=== PATIENT | male | born 1940 | race Caucasian/White ===

== ENCOUNTER 2019-04-12 22:03 | Inpatient (IN) | payer MEDICARE, BC ==
[2019-04-12] MEDS ORDERED: ZOCOR20 MG PO (22:15)
[2019-04-12] MEDS ORDERED: FLOMAX0.4 MG PO (22:15)
[2019-04-12 22:51] LABS: APTT 29.5 SECONDS (22.8-39.4); INR 0.99 (0.85-1.17); PROTIME 12.6 SECONDS (11.6-15.0)
[2019-04-12 22:55] LABS: ALBUMIN 3.7 g/dL (3.4-5.0); ALKALINE PHOSPHATASE 88 U/L (46-116); ALT (SGPT) 45 U/L (10-68); BILIRUBIN - TOTAL 0.98 mg/dL (0.2-1.3); CALC OSMOLALITY 286 mosm/kg (275-300); CALCIUM 8.9 mg/dL (8.5-10.1); CARBON DIOXIDE 28.2 mmol/L (21.0-32.0); CHLORIDE - SERUM 106 mmol/L (98-107); CREATININE - SERUM 0.9 mg/dL (0.6-1.3); GLUCOSE 110 mg/dL (74-106); POTASSIUM - SERUM 4.3 mmol/L (3.5-5.1); PROTEIN - SERUM 6.8 g/dL (6.4-8.2); SODIUM 142 mmol/L (136-145); UREA NITROGEN 22 mg/dL (7-18); eGFR NON AFRICAN AMERICAN 86 mL/min (90-120)
[2019-04-12 23:07] LABS: CHOL - HDL RATIO 4.3 ratio (2.3-4.9); CHOLESTEROL, TOTAL 196 mg/dL (0-200); CKMB 1.2 U/L (0.0-3.6); CREATINE KINASE 59 UL (21-232); HDL CHOLESTEROL 46 mg/dL (32-96); LDL CHOLESTEROL 122 mg/dL (0-100); LDL-HDL RATIO 2.7 ratio (1.5-3.5); MAGNESIUM - SERUM 1.9 mg/dL (1.8-2.4); THYROID STIMULATING HORMONE 1.53 uIU/mL (0.36-3.74); TRIGLYCERIDE 142 mg/dL (30-200)
[2019-04-12 23:08] LABS: BASOPHILS 0.2 % (0-2); HEMATOCRIT 46.1 % (42.0-54.0); HEMOGLOBIN 16.4 g/dL (13.5-17.5); IMMATURE GRANULOCYTES 0.6 % (0-5); LYMPHOCYTES 25.8 % (15-50); MCH 31.5 pg (26.0-34.0); MCHC 35.6 g/dL (31.0-37.0); MCV 88.7 fL (80.0-100.0); MEAN PLATELET VOLUME 9.4 fL (7.4-10.4); MONOCYTES 12.4 % (2-11); PLATELET COUNT 161 10x3/uL (130-400); RDW 13.9 % (11.5-14.5)
[2019-04-12 23:13] LABS: TROPONIN-I < 0.017 ng/mL (0.000-0.060)
--- NOTE | 2019-04-12 23:17 | NUR ---
IN AND OUT RUELAS CATHETER INSERTED WITH URINE SENT TO LAB. PT TOLERATED WELL.
[2019-04-13 00:01] LABS: UDS - AMPHET NEGATIVE QUAL (NEGATIVE); UDS - BARB NEGATIVE QUAL (NEGATIVE); UDS - BENZO NEGATIVE QUAL (NEGATIVE); UDS - COCAINE NEGATIVE QUAL (NEGATIVE); UDS - OPIATE NEGATIVE QUAL (NEGATIVE); UDS - PCP NEGATIVE QUAL (NEGATIVE); UDS - THC NEGATIVE QUAL (NEGATIVE)
[2019-04-13 00:04] LABS: APPEARANCE CLEAR (CLEAR); BILIRUBIN NEGATIVE (NEGATIVE); COLOR YELLOW (YELLOW); GLUCOSE NEGATIVE (NEGATIVE); KETONE NEGATIVE (NEGATIVE); NITRITE NEGATIVE (NEGATIVE); PROTEIN NEGATIVE (NEGATIVE); UROBILINOGEN NORMAL (NORMAL)
[2019-04-13 00:10] VITALS: BP 126/72
--- NOTE | 2019-04-13 01:33 | NUR ---
PATIENT ARRIVED FROM OUR E.D. AT 00:45 CALM AND COOPERATIVE, CODE STATUS IS FULL CODE, CODE WORD IS 'ALVIN1', CONSENTS SIGNED BY PATIENT, SALLY MORALES AWARE OF ARRIVAL, VS T 96.1, P 77, R 13, BP 123/72, O 2 97 %, WILL CONTINUE TO MONITOR.
[2019-04-13 02:59] VITALS: BP 123/72; BMI 27.5
[2019-04-13 07:44] LABS: CHOL - HDL RATIO 3.6 ratio (2.3-4.9); LDL-HDL RATIO 2.3 ratio (1.5-3.5)
[2019-04-13 08:39] VITALS: BMI 27.5
[2019-04-13 12:39] VITALS: BP 154/68
[2019-04-13 12:42] VITALS: BMI 27.4
--- NOTE | 2019-04-13 14:28 | NUR ---
B) The patient is pleasant and calm, he has poor short term memory recall and poor insight into his situation. He knows his name, but not place or time. He has not shown any aggression today. I) Provide prescribed meds, encourage group participation. R) The patient is compliant with meds. P) Continue POC.
--- NOTE | 2019-04-14 01:55 | NUR ---
B) Patient is alert and oriented to person, looking for his keys, forgetful asking several times the same question, I) Administered scheduled medications as ordered, redirected as needed, R) Mediation compliant, agitated at times, P) Continue plan of care.
[2019-04-14 07:25] LABS: VITAMIN D 25 HYDROXY 22.7 ng/mL (30.0-100.0)
--- NOTE | 2019-04-14 08:10 | NUR ---
B) The patient is awake and alert. He is oriented to self only, he is confused, he began walking over toward the Rehab door to go to breakfast. I) Provide prescribed meds. R) The patient is compliant meds. P) Continue POC.
[2019-04-14 08:15] LABS: RAPID PLASMA REAGIN Non Reactive (Non Reactive)
[2019-04-14 09:21] VITALS: BP 158/90
[2019-04-14 14:07] LABS: BASOPHILS 0.3 % (0-2); EOSINOPHILS 0.7 % (0-7); HEMATOCRIT 47.5 % (42.0-54.0); HEMOGLOBIN 17.1 g/dL (13.5-17.5); IMMATURE GRANULOCYTES 0.3 % (0-5); LYMPHOCYTES 17.9 % (15-50); MCH 31.6 pg (26.0-34.0); MCV 87.8 fL (80.0-100.0); MEAN PLATELET VOLUME 9.6 fL (7.4-10.4); MONOCYTES 11.4 % (2-11); NEUTROPHILS 69.4 % (40-80); PLATELET COUNT 156 10x3/uL (130-400); RBC 5.41 10x6/uL (4.20-6.10); RDW 13.7 % (11.5-14.5); WBC 5.8 10x3/uL (4.8-10.8)
--- NOTE | 2019-04-14 14:15 | PSY ---
PATIENT NAME:GENA MORALES MEDICAL RECORD: [id number] : 38 LOCATION:[facility] ADMISSION DATE: 04/13/19 ACCOUNT: [id number] PSYCHIATRIC EVALUATION DATE OF EVALUATION: 04/13/19 IDENTIFYING DATA: The patient is 79 years old and he is admitted to the hospital on a voluntary basis. CHIEF COMPLAINT: Aggression. HISTORY OF PRESENT ILLNESS: The patient lives at home with his . He has a history of dementia and he became aggressive with her. The primary care physician ordered Seroquel, which did not help and he was aggressive again, so he was brought to the Emergency Room and admitted. The patient is very polite, cooperative, talks to me in a very casual fashion and says that he has no particular problems. He does not know where he is. He does not realize it is the hospital and seems surprised and then dismissive when I tell him that. He says that he is waiting to be called to court to testify that he is being asked to testify in a murder trial, but he says that there is really no reason for him to go and testify because he does not have any information and did not see anything. He is clearly quite confused when asked very basic background questions about what he did for a living. He cannot even tell me the answer to that. He says he would never become aggressive with his and does take offense when I tell him that is what happened. He denies depressive symptoms as well as thoughts of harming himself or others. He says that he likes to drink, but that he has done so for a long time. I am not sure how accurate that history is. He denies that he ever drank to serious excess. PAST MEDICAL HISTORY: Significant for benign prostatic hypertrophy and hypercholesterolemia. PAST PSYCHIATRIC HISTORY: Significant for an established diagnosis of dementia. FAMILY HISTORY: Significant for hypertension in his father. ALLERGIES: No known drug allergies. CURRENT MEDICATIONS: Include Flomax and Zocor. SOCIAL HISTORY: The patient does not smoke. He says he does not drink and he has never used recreational drugs. He is . He says he has children, but he cannot remember how many. Again, he does not remember what he did for living. He says he is from [place] and he knows he is in [place], but he cannot tell me why he came here. MENTAL STATUS EXAMINATION: The patient is awake, alert and oriented to person only. His mood is flat. His affect is constricted. Thought processes are circumstantial. Memory, concentration, and abstraction abilities are severely impaired and he denies any intent to harm himself or others as well as psychotic symptoms. ASSETS: Supportive family members. LIABILITIES: Limited insight. DIAGNOSTIC IMPRESSION: AXIS I: Senile dementia of the Alzheimer's type with behavioral disturbances. AXIS II: None. AXIS III: Hypercholesterolemia, benign prostatic hypertrophy. AXIS IV: Moderate. AXIS V: Global assessment of functioning is 30. PLAN: At this time, the patient is admitted to the hospital secondary to aggressive behaviors at home with his . The aggressive behaviors are related to a dementing illness. He will be comprehensively evaluated from both a medical, psychological, and social standpoint. His long-term prognosis is guarded. TRANSINT:[id number] Voice Confirmation ID: [id number] DOCUMENT ID: [id number] CRISELDA DIAMOND MD at 1415 CC: [id number] DICTATION DATE: 04/13/19 1545 PROPELLER ENGINEER: 04/13/19 1624 ADM IN [facility] [address] [id number]
[2019-04-14 14:23] LABS: ALKALINE PHOSPHATASE 93 U/L (46-116); ALT (SGPT) 51 U/L (10-68); BILIRUBIN - TOTAL 1.38 mg/dL (0.2-1.3); CHLORIDE - SERUM 105 mmol/L (98-107); GLUCOSE 78 mg/dL (74-106); POTASSIUM - SERUM 3.9 mmol/L (3.5-5.1); PROTEIN - SERUM 7.2 g/dL (6.4-8.2); SODIUM 142 mmol/L (136-145); eGFR NON AFRICAN AMERICAN 76 mL/min (90-120)
[2019-04-14 15:03] LABS: CALC OSMOLALITY 282 mosm/kg (275-300); UREA NITROGEN 16 mg/dL (7-18)
[2019-04-14 20:00] VITALS: BP 160/74
--- NOTE | 2019-04-14 23:09 | NUR ---
PATIENT IS CONFUSED, TRIES TO USE THE PHONE AND LOOK FOR A WAY TO EXIT, COMPLIANT WITH MEDS, DENIES S/I. WILL FOLLOW POC
[2019-04-15 08:08] VITALS: BP 151/74; BP 177/97
[2019-04-15 09:57] VITALS: BP 177/97
--- NOTE | 2019-04-15 10:36 | PN ---
PATIENT:GENA MORALES MEDICAL RECORD: [id number] LOCATION:[facility] ADMISSION DATE: 04/13/19 PROGRESS NOTE DATE OF SERVICE: 04/14/2019 SUBJECTIVE: The patient's case was discussed with staff. He has no new complaint. OBJECTIVE: The patient denies intent to harm himself or others. He is tolerating his medicines well. ASSESSMENT: Senile dementia of the Alzheimer's type with behavioral disturbances. PLAN: Supportive and educational interventions were made. Long-term prognosis is guarded. He is going to be started on Aricept for his cognitive impairment. TRANSINT:[id number] Voice Confirmation ID: [id number] DOCUMENT ID: [id number] CRISELDA DIAMOND MD at 1036 CC: [id number] DICTATION DATE: 04/14/19 1555 CERAMIC TILE SETTER: 04/14/19 2236 ADM IN [place] [id number]
--- NOTE | 2019-04-15 11:17 | NUR ---
B) The patient is awake and alert, he has poor insight into his situation. He ambulates independently. He asks the same question over and over. He has not been aggressive today. I) Provide prescribed meds. R) The patient is compliant with meds. P) Continue POC.
[2019-04-15 20:00] VITALS: BP 172/89
--- NOTE | 2019-04-16 00:16 | NUR ---
PATIENT IS VERY CONFUSED, ALWAYS LOOKING FOR A TELEPHONE, PT. REDIRECTED OVER AND OVER. COMPLIANT WITH MEDS, PLEASANT DEMEANOR. WILL MONITOR
[2019-04-16 07:00] VITALS: BP 178/93
--- NOTE | 2019-04-16 09:40 | PN ---
PATIENT:GENA MORALES MEDICAL RECORD: [id number] LOCATION:[facility] ADMISSION DATE: 04/13/19 PROGRESS NOTE DATE OF SERVICE: 04/15/2019 SUBJECTIVE: The patient's case was discussed with staff. He has no new complaint. OBJECTIVE: The patient is in good behavioral control with limited insight about his condition. He is tolerating his medicines well. ASSESSMENT: Senile dementia of the Alzheimer's type with behavioral disturbances. PLAN: Current medicines have been reviewed, both will be maintained. Long-term prognosis is guarded. TRANSINT:[id number] Voice Confirmation ID: [id number] DOCUMENT ID: [id number] CRISELDA DIAMOND MD at 0940 CC: [id number] DICTATION DATE: 04/15/19 1226 DIRECTOR OUTPATIENT SERVICES: 04/15/19 1710 ADM IN [address] [id number] [place] [address]
--- NOTE | 2019-04-16 14:19 | NUR ---
PT IS ALERT AND ORIENTED TO PERSON. CALM AND COOPERATIVE WITH ASSESSMENT. PT IS CONFUSED, REPEATEDLY ASK STAFF SAME QUESTIONS. PT IS EASILY REDIRECTED PER STAFF. REDIRECTED AND REORIENTED NEEDED. MED COMPLIANT. FALL PRECAUTIONS IN PLACE. WILL CPOC.
[2019-04-16 20:08] VITALS: BP 130/70
--- NOTE | 2019-04-16 21:46 | NUR ---
RECEIVED IN DAYROOM. SITTING IN A CHAIR WITH PEERS AT HIS SIDE. CALM AND COOPERATIVE WITH CARE AND ASSESSMENT. NO SIGNS OF AGGRESSION. REDIRECT AND REORIENT NEEDED. CONTINUES TO SIT QUIETLY IN CHAIR. CONTINUE PLAN OF CARE
[2019-04-17 07:00] VITALS: BP 126/68
--- NOTE | 2019-04-17 11:29 | NUR ---
PT IS ALERT AND ORIENTED. PT IS CALM AND COOPERATIVE WITH ASSESSMENT. MED COMPLIANT. PT'S BEHAVIOR IS CALM. NO AGGRESSION NOTED AT THIS TIME. REDIRECT AND REORIENT NEEDED. FALL PRECAUTIONS IN PLACE. WILL CPOC.
--- NOTE | 2019-04-17 13:26 | NUR ---
Nutrition follow up Regular diet with 87% average po intake Weight 166lb RD following
--- NOTE | 2019-04-17 14:35 | PN ---
PATIENT:GENA MORALES MEDICAL RECORD: [id number] LOCATION:[facility] ADMISSION DATE: 04/13/19 PROGRESS NOTE DATE OF SERVICE: 04/16/2019 SUBJECTIVE: The patient's case was discussed with staff. He has no new complaint. OBJECTIVE: The patient is polite and in good control. He is making reasonable, coherent, and logical sense, even though he is severely impaired with his memory. ASSESSMENT: Senile dementia of the Alzheimer's type with behavioral disturbances. PLAN: Current medicines have been reviewed and will be maintained. Long-term prognosis is guarded. TRANSINT:[id number] Voice Confirmation ID: [id number] DOCUMENT ID: [id number] CRISELDA DIAMOND MD at 1435 CC: [id number] DICTATION DATE: 04/16/19 1016 BRUSH WORKER: 04/16/19 1408 ADM IN [facility] [address] [place] [address]
--- NOTE | 2019-04-17 22:00 | NUR ---
RECEIVED IN DAYROOM. WANDERING AROUND. CALM AND COOPERATIVE WITH CARE AND ASSESSMENT. NO AGGRESSIVE BEHAVIORS. REDIRECT AND REORIENT NEEDED. GETTING READY FOR BED AT THIS TIME. CONTINUE PLAN OF CARE.
[2019-04-18 02:22] VITALS: BP 122/64
[2019-04-18 08:00] VITALS: BP 131/71
--- NOTE | 2019-04-18 09:41 | PN ---
PATIENT:GENA MORALES MEDICAL RECORD: [id number] LOCATION:[facility] ADMISSION DATE: 04/13/19 PROGRESS NOTE DATE OF SERVICE: 04/17/2019 SUBJECTIVE: The patient's case was discussed with staff. He has no new complaint. OBJECTIVE: The patient is not eating very well. Staff is encouraging him to do so with difficulty. He has not been aggressive. ASSESSMENT: Senile dementia of the Alzheimer's type with behavioral disturbances. PLAN: The patient will be treated with Megace. Megace is being used to treat his underlying appetite suppression. He will be monitored for clinical changes associated with its use. TRANSINT:[id number] Voice Confirmation ID: [id number] DOCUMENT ID: [id number] CRISELDA DIAMOND MD at 0941 CC: [id number] DICTATION DATE: 04/17/19 1457 LEATHER LACER: 04/17/19 1503 ADM IN [id number] [place] [address]
--- NOTE | 2019-04-18 17:20 | NUR ---
PT IS ALERT AND ORIENTED. CALM AND COOPERATIVE WITH ASSESSMENT. PT IS PLEASANTLY CONFUSED. MED COMPLIANT. REDIRECT AND REORIENT NEEDED. FALL PRECAUTIONS IN PLACE. WILL CPOC.
--- NOTE | 2019-04-18 23:42 | NUR ---
RECEIVED IN PATIENT ROOM. GETTING READY FOR BED. CALM AND COOPERATIVE WITH CARE AND ASSESSMENT. NO AGGRESSIVE BEHAVIORS. REDIRECT AND REORIENT NEEDED. RESTING IN BED WITH EYES CLOSED AT THIS TIME. CONTINUE PLAN OF CARE.
--- NOTE | 2019-04-19 07:30 | NUR ---
PT IS ALERT AND ORIENTED TO PERSON ONLY. CALM AND COOPERATIVE WITH ASSESSMENT. MED COMPLIANT. REDIRECT AND REORIENT NEEDED. MED COMPLIANT. FALL PRECAUTIOSN IN PLACE. WILL CPOC.
[2019-04-19 09:00] VITALS: BP 123/79
--- NOTE | 2019-04-19 12:50 | PN ---
PATIENT:GENA MORALES MEDICAL RECORD: [id number] LOCATION:[facility] ADMISSION DATE: 04/13/19 PROGRESS NOTE DATE OF SERVICE: 04/18/2019 SUBJECTIVE: The patient's case was discussed with staff. He has no new complaint. OBJECTIVE: The patient has been in good behavioral control and has not been significantly agitated. He does have an occasional depressed mood, probably not rising to the level of a full major depressive illness, but I think he would benefit from a low dose of an antidepressant medication. His long-term prognosis is guarded. TRANSINT:[id number] Voice Confirmation ID: [id number] DOCUMENT ID: [id number] CRISELDA DIAMOND MD at 1250 CC: [id number] DICTATION DATE: 04/18/19 1157 ROOM DESIGNER: 04/18/19 1203 ADM IN [place] [id number] [place] [address]
[2019-04-19 20:00] VITALS: BP 157/74
--- NOTE | 2019-04-19 21:14 | NUR ---
RECEIVED IN DAYROOM. SITTING IN A CHAIR WITH PEERS AT HIS SIDE. CALM AND COOPERATIVE WITH CARE AND ASSESSMENT. NO SIGNS OF AGGRESSION. REDIERCT AND REORIENT NEEDED. CONTINUES TO REST QUIETLY IN CHAIR. CONTINUE PLAN OF CARE
--- NOTE | 2019-04-20 07:20 | NUR ---
REC'D PATIENT PACING IN THE HALLWAY. RESP EVEN AND NONLABORED. NO ACUTE DISTRESS NOTED. PT IS CONFUSED ALERT AND ORIENTED TO PLACE. PT AMBULATES. NO BEHAVIORS NOTED. WILL CONT PLAN OF CARE.
[2019-04-20 08:37] VITALS: BP 159/83
--- NOTE | 2019-04-20 15:03 | PN ---
PATIENT:GENA MORALES MEDICAL RECORD: [id number] LOCATION:[facility] ADMISSION DATE: 04/13/19 PROGRESS NOTE DATE OF SERVICE: 04/19/2019 SUBJECTIVE: The patient's case was discussed with staff. He has no new complaint. OBJECTIVE: The patient is in good behavioral control. He has shown no aggressive behaviors. ASSESSMENT: Senile dementia of the Alzheimer's type with behavioral disturbances. PLAN: The patient is going to be maintained on current medicines. His is looking for a group home for placement. His long-term prognosis is guarded. TRANSINT:[id number] Voice Confirmation ID: [id number] DOCUMENT ID: [id number] CRISELDA DIAMOND MD at 1503 CC: [id number] DICTATION DATE: 04/19/19 1548 ANIMAL CARE TAKER: 04/19/19 2344 ADM IN [facility] [address] [place] [address]
--- NOTE | 2019-04-20 18:17 | NUR ---
PT SITTING IN CHAIR READING A MAGAZINE. RESP EVEN AND NONLABORED. NO ACUTE DISTRESS NOTED. PT AMBULATES. INCONTIENT AT TIMES. MED COMPLIANT. CONFUSION NOTED. ALERT TO PERSON AND PLACE. NO BEHAVIORS NOTED THIS SHIFT. PT VISITED THIS SHIFT. PT TOLERATED WELL. EATS WELL. WILL CONT PLAN OF CARE.
[2019-04-20 20:00] VITALS: BP 140/52
--- NOTE | 2019-04-20 20:45 | NUR ---
PT. IS VERY CONFUSED, SHORT ATTENTION SPAN. NO AGGRESSION NOTED. COMPLIANT [facility] MEDS.
--- NOTE | 2019-04-21 08:00 | NUR ---
REC'D PT SITTING IN CHAIR IN HALLWAY WAITING BREAKFAST. RESP EVEN AND NONLABORED. NO ACUTE DISTRESS NOTED. CONFUSION NOTED. PATIENT IS ORIENTED TO PLACE AND SELF. AMBULATES. MED COMPLINAT. NO BEHAVIORS NOTED. WILL CONT PLAN OF CARE.
[2019-04-21 09:26] VITALS: BP 155/80
--- NOTE | 2019-04-21 11:44 | NUR ---
B) The patient is pleasant and he ambulates independently. He has poor insight into his situation. He participates in groups and activities. I) Provide prescribed meds. R) The patient is compliant with meds. He has not shown any aggression today. P) Continue POC.
--- NOTE | 2019-04-21 15:53 | PN ---
PATIENT:GENA MORALES MEDICAL RECORD: [id number] LOCATION:[facility] ADMISSION DATE: 04/13/19 PROGRESS NOTE DATE OF SERVICE: 04/20/2019 SUBJECTIVE: The patient's case was discussed with staff. He has no new complaint. OBJECTIVE: The patient is tolerating his initial dose of Celexa well. He has not been aggressive. I am going to increase the dose of his Aricept slightly. ASSESSMENT: Senile dementia of the Alzheimer's type with behavioral disturbances. PLAN: Current medicines and therapies have been reviewed, both will be maintained. Long-term prognosis is guarded. TRANSINT:[id number] Voice Confirmation ID: [id number] DOCUMENT ID: [id number] CRISELDA DIAMOND MD at 1553 CC: [id number] DICTATION DATE: 04/20/19 1619 LOCKER ATTENDANT: 04/20/19 1730 ADM IN [id number] [place] [address]
[2019-04-21 20:03] VITALS: BP 126/65
--- NOTE | 2019-04-21 20:58 | NUR ---
PATIENT HAS A POOR MEMORY, PATIENT'S AFFECT SEEMS TO BE MORE FLAT COMPARED TO LAST WEEK. PLEASANT, COMPLIANT WITH MEDS. NO ADVERSE REACTION NOTED. WILL FOLLOW POC
--- NOTE | 2019-04-22 07:50 | NUR ---
REC'D PT SITTING IN CHAIR WITH EYES OPEN. RESP EVEN AND NONLABORED. NO ACUTE DISTRESS NOTED. SOME CONFUSION NOTED. AFFECT HAS BEEN FLAT THIS SHIFT. MED COMPLAINT. AMBULATES. WILL CONT PLAN OF CARE.
--- NOTE | 2019-04-22 11:29 | PN ---
PATIENT:GENA MORALES MEDICAL RECORD: [id number] LOCATION:[facility] ADMISSION DATE: 04/13/19 PROGRESS NOTE DATE OF SERVICE: 04/21/2019 SUBJECTIVE: The patient's case was discussed with staff. He has no new complaint. OBJECTIVE: The patient has been in good behavioral control with no behavior problems at all. He is eating and sleeping well. His is looking for snf. ASSESSMENT: Senile dementia of the Alzheimer's type with behavioral disturbances. PLAN: Current medicines have been reviewed and will be maintained. Long-term prognosis is guarded. TRANSINT:[id number] Voice Confirmation ID: [id number] DOCUMENT ID: [id number] CRISELDA DIAMOND MD at 1129 CC: [id number] DICTATION DATE: 04/21/191741 PILLOW CLEANER: 04/21/192136 ADM IN [facility] [address] [place] [address]
[2019-04-22 11:51] VITALS: BP 134/71
--- NOTE | 2019-04-22 19:03 | NUR ---
PATIENT SITTING IN CHAIR SOCIALZING WITH PEERS. RESP EVEN AND NONLABORED. NO ACUTE DISTRESS NOTED. PT IS MED COMPLIANT. ALLOWED TECH TO SHAVE HIM. MED ATE ALL MEALS. AMBULATES. WILL CONT PLAN OF CARE.
[2019-04-22 20:42] VITALS: BP 114/55
--- NOTE | 2019-04-22 21:16 | NUR ---
PATIENT IS CALM, CONFUSED, LITTLE FLAT, TALKS TO ONE OTHER PATIENT HERE ONLY, CAN VOICE NEEDS, COMPLIANT WITH MEDS. WILL FOLLOW POC
[2019-04-23 07:00] VITALS: BP 127/77
--- NOTE | 2019-04-23 07:30 | NUR ---
PT IS ALERT AND ORIENTED. CALM AND COOPERATIVE WITH ASSESSMENT. NO AGGRESSION NOTED. REDIRECT AND REORIENT NEEDED. MED COMPLIANT. FALL PRECAUTIONS IN PLACE. WILL CPOC.
--- NOTE | 2019-04-23 12:15 | PN ---
PATIENT:GENA MORALES MEDICAL RECORD: [id number] LOCATION:[facility] ADMISSION DATE: 04/13/19 PROGRESS NOTE DATE OF SERVICE: 04/22/2019 SUBJECTIVE: The patient's case was discussed with staff. He has no new complaint. OBJECTIVE: The patient is in good behavioral control. He has very limited insight about his condition. He is tolerating his medications well. ASSESSMENT: Senile dementia of the Alzheimer's type with behavioral disturbances. PLAN: The patient's Celexa will be increased to 20 mg daily. Celexa is being used to treat his underlying agitation and depressive symptoms. He will be monitored for clinical changes associated with its use. TRANSINT:[id number] Voice Confirmation ID: [id number] DOCUMENT ID: [id number] CRISELDA DIAMOND MD at 1215 CC: [id number] DICTATION DATE: 04/22/19 1300 PASTER OPERATOR: 04/22/19 1344 ADM IN [address] [place] [address]
[2019-04-23 20:56] VITALS: BP 143/70
--- NOTE | 2019-04-23 23:36 | NUR ---
PATIENT IS SEEMS TO BE DECLINING. HIS APPEARANCE IS MORE DISHEVELED. HE'S VERY FORGETFUL. NON COMPLIANT WITH MEDS THIS EVENING. WILL FOLLOW POC
[2019-04-24 07:00] VITALS: BP 119/75
--- NOTE | 2019-04-24 07:30 | NUR ---
PT IS ALERT AND ORIENTED TO PERSON. CALM AND COOPERATIVE WITH ASSESSMENT. NO AGGRESSION NOTED. MED COMPLIANT. REDIRECT AND REORIENT NEEDED. FALL PRECAUTIONS IN PLACE. WILL CPOC.
--- NOTE | 2019-04-24 10:18 | NUR ---
Nutrition follow up Regular diet with 90% average po intake Megace ordered BM yesterday Weight 165lb RD following
--- NOTE | 2019-04-24 14:32 | PN ---
PATIENT:GENA MORALES MEDICAL RECORD: [id number] LOCATION:[facility] ADMISSION DATE: 04/13/19 PROGRESS NOTE DATE OF SERVICE: 04/23/2019 SUBJECTIVE: The patient's case was discussed with staff. He has no new complaint. OBJECTIVE: The patient denies intent to harm himself or others. He is sedated, but easily arousable. ASSESSMENT: Senile dementia of the Alzheimer's type with behavioral disturbances. PLAN: Current medicines and therapies have been reviewed, both will be maintained. I think that he will tolerate his medicines better if he is given an opportunity to adjust to them. TRANSINT:[id number] Voice Confirmation ID: [id number] DOCUMENT ID: [id number] CRISELDA DIAMOND MD at 1432 CC: [id number] DICTATION DATE: 04/23/19 1258 CERTIFIED PEDORTHOTIST: 04/23/19 1443 ADM IN [facility] [address] [place] [address]
[2019-04-24 20:00] VITALS: BP 125/67
--- NOTE | 2019-04-24 21:00 | NUR ---
RECEIVED IN DAYROOM. SITTING CALM IN A CHAIR WITH PEERS AT HIS SIDE. CALM AND COOPERATIVE WITH CARE AND ASSESSMENT. NO SIGNS OF AGGRESSION. REDIERCT AND REORIENT NEEDED. RESTING QUIETLY IN A CHAIR. CONTINUE PLAN OF CARE
[2019-04-25 08:30] VITALS: BP 133/77
--- NOTE | 2019-04-25 13:17 | PN ---
PATIENT:GENA MORALES MEDICAL RECORD: [id number] LOCATION:[facility] ADMISSION DATE: 04/13/19 PROGRESS NOTE DATE OF SERVICE: 04/24/2019 SUBJECTIVE: The patient's case was discussed with staff. He has no new complaint. OBJECTIVE: The patient is in good behavioral control. He has had no active thoughts of harming himself or others. He is tolerating his medicines well. ASSESSMENT: Senile dementia of the Alzheimer's type with behavioral disturbances. PLAN: I anticipate the patient can reasonably be transitioned out of the hospital soon. His long-term prognosis is guarded. Brief supportive and educational interventions were made. TRANSINT:[id number] Voice Confirmation ID: [id number] DOCUMENT ID: [id number] CRISELDA DIAMOND MD at 1317 CC: [id number] DICTATION DATE: 04/24/19 1629 MICROSOFT WINDOWS ENGINEER: 04/24/19 191 ADM IN [facility] [address] [place] [address]
--- NOTE | 2019-04-25 14:16 | NUR ---
SITTING IN CHAIR IN DAYROOM CONVERSING WITH PEERS, CHEERFUL AND PLEASANT. NO AGGRESSION NOTED, CONFUSED. MEDS ADMIN PER ORDERS WITH COMPLETE MED COMPLIANCE NOTED. EASILY RE-DIRECTS, COOPERATIVE WITH GROUP AND STAFF. CONT POC INCLUDING MEDS AND GROUP THERAPY DIRECTED.
[2019-04-25 20:00] VITALS: BP 115/55
--- NOTE | 2019-04-25 21:37 | NUR ---
RECEIVED IN DAYROOM. SITTING IN A CHAIR WITH PEERS AT HIS SIDE. CALM AND COOPERATIVE WITH CARE AND ASSESSMENT. NO SIGNS OF AGGRESSION. REDIRECT AND REORIENT NEEDED. CONTINUE TO REST QUIETLY. CONTINUE PLAN OF CARE
[2019-04-26 10:30] VITALS: BP 115/65
--- NOTE | 2019-04-26 13:27 | PN ---
PATIENT:GENA MORALES MEDICAL RECORD: [id number] LOCATION:[facility] ADMISSION DATE: 04/13/19 PROGRESS NOTE DATE OF SERVICE: 04/25/2019 SUBJECTIVE: The patient's case was discussed with staff. He has no new complaint. OBJECTIVE: The patient is in good behavioral control with no thoughts of harming himself or others and no aggressive behavior. He is only partially oriented. ASSESSMENT: Senile dementia of the Alzheimer's type with behavioral disturbances. PLAN: Current medicines have been reviewed and will be maintained. His long-term prognosis is guarded. I anticipate he can be transitioned out of the hospital soon. TRANSINT:[id number] Voice Confirmation ID: [id number] DOCUMENT ID: [id number] CRISELDA DIAMOND MD at 1327 CC: [id number] DICTATION DATE: 04/25/19 1345 PC TECH: 04/25/19 1416 ADM IN [facility] [address] [place] [address]
--- NOTE | 2019-04-26 18:37 | NUR ---
ORIENTED TO SELF.COMPLIANT WITH STAFF AND MEDS.NO AGGRESSION OBSERVED.WILL CONTINUE WITH PLAN OF CARE,MONITOR FOR SAFETY AND CHANGES.
[2019-04-26 21:07] VITALS: BP 130/60
--- NOTE | 2019-04-26 21:22 | NUR ---
PT. IS PLEASANT, FOLLOWS DIRECTIONS, MAKES NEEDS KNOWN, CONFUSED BUT SEEMS LESS CONFUSED COMPARED TO 3 DAYS AGO. COMPLIANT WITH MEDS AND NO ADVERSE REACTION NOTED. WILL FOLLOW POC
--- NOTE | 2019-04-27 08:30 | NUR ---
REC'D PATIENT SITTING IN CHAIR WAITING IN BREAKFAST. RESP EVEN AND NONLABORED. NO ACUTE DISTRESS NOTED. SOME CONFUSION NOTED. MED COMPLIANT. WILL CONT PLAN OF CARE.
--- NOTE | 2019-04-27 08:50 | NUR ---
REC'D PATIENT EATING BREAKFAST. PT EATING WELL. RESP EVEN AND NONLABORED. NO ACUTE DISTRESS NOTED. MED COMPLIANT. PT SLEPT GOOD. NO BEHAVIORS NOTED. AMBULATES. WILL CONT PLAN OF CARE.
--- NOTE | 2019-04-27 11:29 | NUR ---
LATE NOTE ENTRY FROM 04/26. SW ATTEMPTED TO CONTACT PT'S TO DISCUSS DISCHARGE PLANS. SW LEFT VOICEMAIL. 04/27 AT 1128. SW ATTEMPTED TO CALL TO DISCUSS DISCHARGE PLANS. NORRIS LEFT VOICEMAIL.
--- NOTE | 2019-04-27 14:55 | PN ---
PATIENT:GENA MORALES MEDICAL RECORD: [id number] LOCATION:[facility] ADMISSION DATE: 04/13/19 PROGRESS NOTE DATE OF SERVICE: 04/26/2019 SUBJECTIVE: The patient's case was discussed with staff. He has no new complaint. OBJECTIVE: The patient is tolerating his medicines well. He is eating a little better. ASSESSMENT: Senile dementia of the Alzheimer's type with behavioral disturbances. PLAN: I anticipate the patient can be transitioned out of the hospital soon. He does need 06-furr-h-day supervision. What is not clear is what environment would be the least restrictive that can still meet his needs. TRANSINT:[id number] Voice Confirmation ID: [id number] DOCUMENT ID: [id number] CRISELDA DIAMOND MD at 1455 CC: [id number] DICTATION DATE: 04/26/19 1357 HORSE AND WAGON DRIVER: 04/26/[address] [facility] [address] [place] [address]
--- NOTE | 2019-04-27 18:03 | NUR ---
PATIENT SITTING IN CHAIR SOCIALIZING WITH PEERS THIS SHIFT. RESP EVEN AND NONLABORED. NO ACUTE DISTRESS NOTED. MEDICATION COMPLIANT THIS SHIFT. NO BEHAVIORS NOTED AT THIS TIME. PT HAD A VISITOR AND TOLERATED WELL. PT IS CONFUSED. ORIENTED TO SELF AND PLACE. WILL CONT PLAN OF CARE.
[2019-04-27 20:43] VITALS: BP 130/74
--- NOTE | 2019-04-27 22:30 | NUR ---
PATIENT IS CONFUSED REGARDING PLACE, TIME AND SITUATION, PATIENT ASKED HIS FOR A DIVORCE TODAY AND HE DOES NOT RECALL THIS HAPPENIING, COMPLIANT WITH MEDS. WILL FOLLOW POC
--- NOTE | 2019-04-28 08:23 | NUR ---
REC'D PT SITTING IN CHAIR IN DINING AREA. RESP EVEN AND NONLABORED. NO ACUTE DISTRESS NOTED. MEDICATION COMPLIANT. AMBULATES. NO BEHAVIORS NOTED. WILL CONT PLAN OF CARE.
[2019-04-28 09:40] VITALS: BP 106/62
--- NOTE | 2019-04-28 15:38 | PN ---
PATIENT:GENA MORALES MEDICAL RECORD: [id number] LOCATION:[facility] ADMISSION DATE: 04/13/19 PROGRESS NOTE DATE OF SERVICE: 04/27/2019 SUBJECTIVE: The patient's case was discussed with staff. He has no new complaint. OBJECTIVE: The patient is in good behavioral control. He is eating a little better. He has not been disruptive. ASSESSMENT: Senile dementia of the Alzheimer's type with behavioral disturbances. PLAN: Current medicines have been reviewed and will be maintained. Long-term prognosis is guarded. TRANSINT:[id number] Voice Confirmation ID: [id number] DOCUMENT ID: [id number] CRISELDA DIAMOND MD at 1538 CC: [id number] DICTATION DATE: 04/27/19 1523 MATH COACH: 04/27/19 1548 ADM IN [facility] [address] [place] [address]
--- NOTE | 2019-04-28 18:52 | NUR ---
PATIENT IS SOCIALIZING WITH PEERS. RESP EVEN AND NONLABORED. NO DISTRESS NOTED. MEDICATION COMPLIANT. PLEASANT MOOD BUT CONFUSED. AMBULATES. NO BEHAVIORS NOTED THIS SHIFT. PATIENT DOES TRY THE DOORS AT TIMES. EASY TO REDIRECT. WILL CONT PLAN OF CARE.
[2019-04-28 20:28] VITALS: BP 119/61
--- NOTE | 2019-04-29 04:21 | NUR ---
B.) Patient is alert and oriented to person and place. I.) Provided PM medications. R.) Compliant with medications. P.) Continue Plan of Care.
[2019-04-29 09:29] VITALS: BP 153/70
--- NOTE | 2019-04-29 10:36 | NUR ---
RECEIVED PATIENT IN DINING ROOM FOR B'FAST, ALERT, CALM, CONFUSED. MEDS ADMIN PER ORDERS WITH COMPLETE MED COMPLIANCE NOTED. COOPERATIVE WITH GROUP AND STAFF REQUESTS. CONT POC INCLUDING MEDS AND GROUP THERAPY DIRECTED.
--- NOTE | 2019-04-29 11:54 | PN ---
PATIENT:GENA MORALES MEDICAL RECORD: [id number] LOCATION:[facility] ADMISSION DATE: 04/13/19 PROGRESS NOTE DATE OF SERVICE: 04/28/2019 SUBJECTIVE: The patient's case was discussed with staff. He has no new complaint. OBJECTIVE: The patient denies intent to harm himself or others. He is tolerating his medicines well. He has had no aggressive behavior. ASSESSMENT: No change in diagnoses. PLAN: The patient is going to be discharged soon. His is having some difficulty with placement. It is mostly related to inability to afford this. He is also having a lot of guilt about placing him anywhere. TRANSINT:[id number] Voice Confirmation ID: [id number] DOCUMENT ID: [id number] CRISELDA DIAMOND MD at 1154 CC: [id number] DICTATION DATE: 04/28/19 1635 BILINGUAL STUDENT TUTOR: 04/28/19 2306 ADM IN [place] [address] [place] [address]
[2019-04-29 22:04] VITALS: BP 118/49
--- NOTE | 2019-04-30 00:51 | NUR ---
B.) Patient is alert and oriented to person only. Patient is pleasant and socializes well with other residents. I.) Provided PM Medications and reorient often. R.) Compliant with medications and remains confused to situation, time and place despite multiple attempts to reorient. P.) Continue Plan of Care.
[2019-04-30 07:00] VITALS: BP 122/77
--- NOTE | 2019-04-30 11:17 | NUR ---
RECEIVED PT. IN DINING ROOM FOR B'FAST, ALERT, CALM, CONFUSED, PLEASANT. MEDS ADMIN PER ORDERS WITH COMPLETE MED COMPLIANCE NOTED. COOPERATIVE WITH GROUP AND STAFF REQUESTS. CONT POC INCLUDING MEDS AND GROUP THERAPY DIRECTED.
--- NOTE | 2019-04-30 13:01 | PN ---
PATIENT:GENA MORALES MEDICAL RECORD: [id number] LOCATION:[facility] ADMISSION DATE: 04/13/19 PROGRESS NOTE DATE OF SERVICE: 04/29/2019 SUBJECTIVE: The patient's case was discussed with staff. He has no new complaint. OBJECTIVE: The patient is in good behavioral control with limited insight about his condition. He is tolerating his medicines well. ASSESSMENT: Senile dementia of the Alzheimer's type with behavioral disturbances. PLAN: I anticipate the patient will be transitioned out of the hospital on Wednesday. Long-term prognosis is guarded. TRANSINT:[id number] Voice Confirmation ID: [id number] DOCUMENT ID: [id number] CRISELDA DIAMOND MD at 1301 CC: [id number] DICTATION DATE: 04/29/19 1215 TOOL GRINDER SET UP OPERATOR GEAR: 04/29/19 1241 ADM IN [place] [place] [address]
[2019-04-30 23:14] VITALS: BP 131/65
--- NOTE | 2019-05-01 00:19 | NUR ---
B.) Patient is alert and socializes well with residents. He ambulates by hiself. I.) Provided PM medications. Redirect and reorient PRN R.) Compliant with medications Patient remains confused despite frequent reorientation. P.) Continue Plan of Care.
[2019-05-01 07:00] VITALS: BP 110/69
--- NOTE | 2019-05-01 07:30 | NUR ---
PT IS ALERT AND ORIENTED TO PERSON. CALM AND COOPERATIVE WITH ASSESSMENT. PRESCRIBED MEDS PROVIDED. MED COMPLIANT. REDIRECT AND REORIENT NEEDED. FALL PRECAUTIONS IN PLACE. WILL CPOC.
--- NOTE | 2019-05-01 12:43 | NUR ---
Nutrition follow up Regular diet with 76% average po intake On Megace BM yesterday Weight 164.8lb RD following
--- NOTE | 2019-05-01 15:13 | PN ---
PATIENT:GENA MORALES MEDICAL RECORD: [id number] LOCATION:[facility] ADMISSION DATE: 04/13/19 PROGRESS NOTE DATE OF SERVICE: 04/30/2019 SUBJECTIVE: The patient's case was discussed with staff. He has no new complaint. OBJECTIVE: The patient denies intent to harm himself or others. He is tolerating his medicines well. ASSESSMENT: Senile dementia of the Alzheimer's type. PLAN: Current medicines and therapies have been reviewed, both will be maintained. Long-term prognosis is guarded. TRANSINT:[id number] Voice Confirmation ID: [id number] DOCUMENT ID: [id number] CRISELDA DIAMOND MD at 1513 CC: [id number] DICTATION DATE: 04/30/19 1314 TRUCK SHOP MECHANIC: 04/30/19 1659 ADM IN [facility] [address] [place] [address]
--- NOTE | 2019-05-01 19:10 | NUR ---
PATIENT SITTING IN DAY AREA SOCIALZING WITH PEERS. RESP EVEN AND NONLABORED. NO ACUTE DISTRESS NOTED. CALM AND COOPERATIVE. AAOX1. CONFUSION NOTED. ASSIST WITH ADLS. MED COMPLIANT. WILL CONT PLAN OF CARE.
[2019-05-02 05:15] VITALS: BP 152/57
--- NOTE | 2019-05-02 07:30 | NUR ---
PT IS ALERT AND ORIENTED TO PERSON. CALM AND COOPERATIVE WITH ASSESSMENT. NO AGGRESSION OR BEHAVIORS NOTED. MED COMPLIANT. REDIRECT AND REORIENT NEEDED. FALL PRECAUTIONS IN PLACE. WILL CPOC.
[2019-05-02 11:56] VITALS: BP 105/65
--- NOTE | 2019-05-02 15:19 | PN ---
PATIENT:GENA MORALES MEDICAL RECORD: [id number] LOCATION:[facility] ADMISSION DATE: 04/13/19 PROGRESS NOTE DATE OF SERVICE: 05/01/2019 SUBJECTIVE: The patient's case was discussed with staff. He has no new complaint. OBJECTIVE: The patient has been in good behavioral control with very limited insight about his condition. He does tolerate his medicines well. ASSESSMENT: Senile dementia of the Alzheimer's type with behavioral disturbances. PLAN: The patient's is having a difficult time deciding what to do. I think she understands that she really cannot manage his behaviors at home; but then if she places him in a long-term, it will essentially bankrupt her. I am not unsympathetic to the plight that people in this position have. It is my opinion that Gena has an irreversible and advanced dementia and that he is in need of 63-tygy-v-day care. Helping determine the least restrictive environment that is practical to place him in is also part of my responsibility, but financial decisions of this sort are just something I am going to have to leave to the . TRANSINT:[id number] Voice Confirmation ID: [id number] DOCUMENT ID: [id number] CRISELDA DIAMOND MD at 1519 CC: [id number] DICTATION DATE: 05/01/19 1536 TEAMSITE DEVELOPER: 05/01/19 1725 ADM IN [place] [id number] [place] [address]
--- NOTE | 2019-05-02 20:46 | NUR ---
RECEIVED IN HALLWAY. WALKING TO BEDROOM. CALM AND COOPERATIVE WITH CARE AND ASSESSMENT. NO SIGNS OF AGGRESSION. REDIRECT AND REORIENT NEEDED. RESTING IN BED WITH EYES CLOSED AT THIS TIME. CONTINUE PLAN OF CARE
[2019-05-03 01:35] VITALS: BP 110/60
[2019-05-03 09:10] VITALS: BP 100/61
--- NOTE | 2019-05-03 10:00 | NUR ---
PATIENT IS AWAKE AND ORIENTED TO PERSON ONLY. CALM AND COOPERATIVE WITH CARE AND ASSESSMENT. REORIENT AND REDIRECT NEEDED. COMPLIANT WITH MEDICATIONS. WILL CONTINUE PLAN OF CARE.
--- NOTE | 2019-05-03 12:39 | PN ---
PATIENT:GENA MORALES MEDICAL RECORD: [id number] LOCATION:[facility] ADMISSION DATE: 04/13/19 PROGRESS NOTE DATE OF SERVICE: 05/02/2019 SUBJECTIVE: The patient's case was discussed with staff. He has no new complaint. OBJECTIVE: The patient is in good behavioral control with limited insight about his condition. ASSESSMENT: Senile dementia of the Alzheimer's type with behavioral disturbances. PLAN: The patient's has not made a decision about where to place him. I think his behaviors are such that he can reasonably be transitioned out of the hospital once she does. TRANSINT:[id number] Voice Confirmation ID: [id number] DOCUMENT ID: [id number] CRISELDA DIAMOND MD at 1239 CC: [id number] DICTATION DATE: 05/02/19 1543 PRODUCTION DRILLING MACHINE OPERATOR: 05/02/191957 ADM IN [facility] [address] [place] [address]
[2019-05-03 20:00] VITALS: BP 122/55
--- NOTE | 2019-05-03 22:19 | NUR ---
B.) Patient is alert and oriented to self. He ambulates by hiself. He socializes well with staff and other residents. I.) Provided PM medications R.) Compliant with all PM medications. P.) Continue Plan of Care.
--- NOTE | 2019-05-04 08:21 | PN ---
PATIENT:GENA MORALES MEDICAL RECORD: [id number] LOCATION:[facility] ADMISSION DATE: 04/13/19 PROGRESS NOTE DATE OF SERVICE: 05/03/2019 SUBJECTIVE: The patient's case was discussed with staff. He has no new complaint. OBJECTIVE: The patient is in good behavioral control with poor insight about his condition. He has not been aggressive. ASSESSMENT: Senile dementia of the Alzheimer's type with behavioral disturbances. PLAN: The is looking at placement with our social security benefits interviewer today. I anticipate he can be transitioned out of the hospital soon. TRANSINT:[id number] Voice Confirmation ID: [id number] DOCUMENT ID: [id number] CRISELDA DIAMOND MD at 0821 CC: [id number] DICTATION DATE: 05/03/19 141 LAY OUT FORMER: 05/03/19 [address] [facility] [address] [place] [address]
[2019-05-04 09:53] VITALS: BP 118/78
--- NOTE | 2019-05-04 14:13 | NUR ---
ORIENTED TO SELF ONLY.COMPLIANT WITH MEDS AND STAFF.NO AGGRESSION OBSERVED.ENJOYS VISITING WITH PEERS.NO AGGRESSION OBSERVED.WILL CONTINUE WITH CURRENT PLAN OF CARE,MONITOR FOR CHANGES AND SAFETY.
[2019-05-04] MEDS ORDERED: Aricept PO (15:45)
[2019-05-04] MEDS ORDERED: CELEXA20 MG PO (15:45)
[2019-05-04] MEDS ORDERED: LISINOPRIL10 MG PO (15:45)
[2019-05-04] MEDS ORDERED: VITAMIN D5000 UNIT PO (15:46)
[2019-05-04] MEDS ORDERED: MEGACE40 MG PO (15:46)
[2019-05-04] MEDS ORDERED: Nizoral 2 % Cream TOPICAL (15:46)
[2019-05-04 20:00] VITALS: BP 92/43
--- NOTE | 2019-05-04 23:04 | NUR ---
B) Patient is alert and oriented to person and place, calm and cooperative, confused at times, I) Administered scheduled medications as ordered, monitored for safety R) Mediation compliant, pleasant and social with peers, P) Continue plan of care.
[2019-05-05 07:36] VITALS: BP 102/62; BP 116/69
--- NOTE | 2019-05-05 09:02 | NUR ---
NORRIS SPOKE TO PT'S , SALLY. SHE STATED PT CAN DC TO [facility] TOMORROW. SHE THANKED STAVE CUTTER AND STAFF FOR ALL OF THE HELP SHE HAS RECIEVED WITH PLACEMENT AND CARE OF HER . NORRIS WILL CONTACT [facility] FOR LIGHTING DIRECTOR TIME. LATE ENTRY FROM 05/04
--- NOTE | 2019-05-05 13:03 | NUR ---
B) The patient is awake and alert, he is oriented to self only. He ambulates independently. He is pleasant. He has poor insight into his situation. I) Provide prescribed meds. R) The patient is compliant with meds. P) Continue POC.
--- NOTE | 2019-05-05 15:15 | PN ---
PATIENT:GENA MORALES MEDICAL RECORD: [id number] LOCATION:[facility] ADMISSION DATE: 04/13/19 PROGRESS NOTE DATE OF SERVICE: 05/04/2019 SUBJECTIVE: The patient's case was discussed with staff. He has no new complaint. OBJECTIVE: The patient is in good behavioral control, but quite confused. He is certainly in need of 56-xdze-x-day supervision. His has found him placement in a prison and he can be discharged tomorrow. TRANSINT:[id number] Voice Confirmation ID: [id number] DOCUMENT ID: [id number] CRISELDA DIAMOND MD at 1515 CC: [id number] DICTATION DATE: 05/04/19 1544 GUITAR TECHNICIAN: 05/04/19 1627 ADM IN [place] [id number] [place] [id number]
--- NOTE | 2019-05-05 18:09 | NUR ---
The patients spouse is here to pick the patient up to go the bathroom. Did provide the med list to the spouse and explained to her that the patient will need to see his PCP within one week. After going over the medication list she said "I have three bottles of Namenda at the house what will I do with them, they're expensive." The belongings on the patient list are accounted, but the patient's spouse says there are more clothes missing and she did leave a list, and her phone number to call her when we find them. The patient is now d/c'd off of the alf unit.
--- NOTE | 2019-05-06 11:17 | PN ---
PATIENT:GENA MORALES MEDICAL RECORD: [id number] LOCATION:[facility] ADMISSION DATE: 04/13/19 PROGRESS NOTE DATE OF SERVICE: 05/05/2019 SUBJECTIVE: The patient's case was discussed with staff. He has no new complaint. OBJECTIVE: The patient is in good behavioral control. He has not been aggressive. He has no psychotic symptoms. He is eating and sleeping well. He has significant and very serious impairment of his memory, concentration, and abstraction abilities. ASSESSMENT: No change in diagnoses. PLAN: Current medicines have been reviewed and will be maintained. Long-term prognosis is guarded. I anticipate the patient can be transitioned out of the hospital soon, perhaps today if current plans follow through. TRANSINT:[id number] Voice Confirmation ID: [id number] DOCUMENT ID: [id number] CRISELDA DIAMOND MD at 1117 CC: [id number] DICTATION DATE: 05/05/19 1528 HYDRAULIC PLUMBER HELPER: 05/05/19 1542 DIS IN 05/05/19 [place] [place] [address]
--- NOTE | 2019-05-11 13:25 | DS ---
PATIENT:GENA MORALES :38 MEDICAL RECORD: [id number] DISCHARGE SUMMARY ADMISSION DATE: 04/13/19 DISCHARGE DATE: 05/05/19 IDENTIFYING DATA: The patient is 79 years old and he is admitted to the hospital on a voluntary basis because of agitation. The patient lives at home with his . He has a history of dementia and he became aggressive with her. The primary care physician ordered Seroquel, which did not help and he repeated the aggression, so he was brought to the Emergency Room and admitted. The patient was clearly very impaired and had no real recollection of what he had done. He was admitted to the hospital for evaluation and treatment of these symptoms. HOSPITAL COURSE: The patient was admitted and fully evaluated from both a medical, psychological, and social standpoint. He was treated with both memory enhancing and mood stabilizing medications and showed significant improvement. He was subsequently placed in long-term care. DISCHARGE DIAGNOSES: AXIS I: Senile dementia of the Alzheimer's type with behavioral disturbances. AXIS II: None. AXIS III: Hypercholesterolemia, benign prostatic hypertrophy. AXIS IV: Moderate. AXIS V: Global assessment of functioning is 35. PLAN: At the time of discharge, the patient was in good behavioral control with little or no insight about his condition. He showed no evidence of acute or direct dangerousness and his followup is to be with his primary care physician. TRANSINT:[id number] Voice Confirmation ID: [id number] DOCUMENT ID: [id number] CRISELDA DIAMOND MD at 1325 CC: [id number] DICTATION DATE: 05/10/19 1254 DIRECTOR OF LOGISTICS: 05/11/19 0132 DIS IN 05/05/19 [id number] [place] [address]
== END 2019-05-05 18:10 | disposition home or self-care (01) | DRG 57 ==
LOC: D.ER 22:03 → D.PSYCH 04-13 00:11
PROVIDERS: Family Medicine; ADMIT Psychiatry & Neurology Psychiatry; ATTEND Psychiatry & Neurology Psychiatry
DX: G30.1 Alzheimer's disease with late onset (principal); F02.81 Dementia in other diseases classified elsewhere, unspecified severity, with behavioral disturbance; G91.2 (Idiopathic) normal pressure hydrocephalus; E78.00 Pure hypercholesterolemia, unspecified; N40.0 Benign prostatic hyperplasia without lower urinary tract symptoms; E78.5 Hyperlipidemia, unspecified; L21.9 Seborrheic dermatitis, unspecified; I10 Essential (primary) hypertension; K64.9 Unspecified hemorrhoids; F32.9 Major depressive disorder, single episode, unspecified

== ENCOUNTER 2019-05-24 11:51 | Inpatient (IN) | payer MEDICARE, BC ==
[~2019-05-24] VITALS: Ht 162.6 cm; Wt 70.7 kg
[~2019-05-24 11:51] MED LIST: Aricept PO; CELEXA20 MG PO; FLOMAX0.4 MG PO; LISINOPRIL10 MG PO; MEGACE40 MG PO; Nizoral 2 % Cream TOPICAL; VITAMIN D5000 UNIT PO; ZOCOR20 MG PO
--- NOTE | 2019-05-24 13:40 | NUR ---
PATIENT ARRIVED TO UNIT VIA AMULANCE, ALERT, CONFUSED, CALM. NO AGGRESSION NOTED AT THIS TIME. PATIENT WEIGHED IN DESIGNATED W/C WEARING JEANS, T SHIRT, ORANGE HOODIE, AND LEATHER HOUSE SHOES. ASSISTED TO DAYROOM TO JOIN PEERS.
--- NOTE | 2019-05-24 13:50 | NUR ---
PATIENT'S WEIGHT OBTAINED VIA W/C SCALE. NET WT 163.2 LBS. PT WEARING JEANS, T-SHIRT, ORANGE HOODIE, LEATHER HOUSE SHOES. PT WEIGHED IN DESIGNATED W/C.
[2019-05-24 18:21] VITALS: BP 131/80; BMI 26.4
[2019-05-24 19:53] VITALS: BP 135/90
--- NOTE | 2019-05-24 22:51 | NUR ---
PT. IS CONFUSED, LABILE, WANTING TO LEAVE, HAS TO BE REDIRECTED. COMPLIANT WITH MEDS. WILL FOLLOW POC
[2019-05-25 07:35] LABS: CHOL - HDL RATIO 2.6 ratio (2.3-4.9); LDL-HDL RATIO 1.3 ratio (1.5-3.5)
[2019-05-25 09:40] VITALS: BP 132/69
--- NOTE | 2019-05-25 09:55 | NUR ---
REC'D PATIENT SITTING IN HALLWAY AWAITING BREAKFAST. CONFUSION NOTED. PT IS ALERT AND ORIENTED TO SELF. REORIENT AND REDIRECT NEEDED. PT IS LABILE AT TIMES. PT IS MED COMPLIANT. HAS NOT VOICED DESIRE TO LEAVE. AMBULATES. WILL CONT PLAN OF CARE.
--- NOTE | 2019-05-25 13:45 | PSY ---
PATIENT NAME:GENA MORALES MEDICAL RECORD: [id number] : 38 LOCATION:[facility] Person ADMISSION DATE: 05/24/19 ACCOUNT: [id number] PSYCHIATRIC EVALUATION DATE OF EVALUATION: 05/24/19 IDENTIFYING DATA: The patient is 79 years old and he is known to me from a previous recent hospitalization. CHIEF COMPLAINT: Aggression. HISTORY OF PRESENT ILLNESS: The patient was admitted to the hospital in early April because of aggression at home involving his . He was admitted to the hospital, treated with mood stabilizing and memory enhancing medications and subsequently was discharged to an assisted living center on 05/05/2019. He now returns and the assisted living center staff says that he has been aggressive there and they feel he is a potential danger. The patient has no recollection of this. He says he remembers being here before, but I am not sure if that is true. He says he wants to go home. When asked what he means by that, he says he wants to go to his parents' house. When asked for further details, he indicates he wants to go to his parents' house in [place]. When told that that is a long way off, he wants to know where he is, and when he is told [place], [place], he looks puzzled and then shrugs it off. He is polite, cooperative, easy going and not aggressive, but clearly very confused. The staff at the assisted living center reported some details of what sounded like a pretty significant event. PAST MEDICAL HISTORY: Significant for benign prostatic hypertrophy and hypercholesterolemia. PAST PSYCHIATRIC HISTORY: Significant for an established diagnosis of dementia. FAMILY HISTORY: Significant for hypertension in his father. ALLERGIES: No known drug allergies. CURRENT MEDICATIONS: Include Flomax and Zocor, along with Celexa, Zestril, Aricept and Megace. SOCIAL HISTORY: The patient is . He is a nonsmoker. He does not drink and has never used recreational drugs. He cannot recall how many children he has again, but if I recall correctly from a month ago he does have adult children. 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 MENTAL STATUS EXAMINATION: The patient is awake, alert and oriented to person only. His mood is euthymic. His affect is appropriate. Thought processes are circumstantial and his memory, concentration, and abstraction abilities are significantly impaired. He denies that he would hurt himself or others. He denies psychotic symptoms. ASSETS: Supportive family members. LIABILITIES: Limited insight. DIAGNOSTIC IMPRESSION: AXIS I: Major neurocognitive disorder of the Alzheimer's type with behavioral disturbances. AXIS II: None. AXIS III: Hypercholesterolemia, hypertension, benign prostatic hypertrophy. AXIS IV: Moderate. AXIS V: Global assessment of functioning is 30. PLAN: At this time, the patient is admitted to the hospital for a comprehensive medical, psychological, and social evaluation. He will be treated with mood stabilizing and memory enhancing medications. His long-term prognosis is guarded. TRANSINT:[id number] Voice Confirmation ID: [id number] DOCUMENT ID: [id number] CRISELDA DIAMOND MD at 1345 CC: [id number] DICTATION DATE: 05/24/19 1535 DAIRY CATTLE FARMER: 05/24/19 1802 ADM IN [facility] [address] [place] [address]
[2019-05-25 14:17] VITALS: BMI 26.4
[2019-05-25 15:25] VITALS: Ht 162.6 cm; Wt 70.7 kg
--- NOTE | 2019-05-25 17:55 | NUR ---
PATIENT SITTING IN DAY AREA WATCHING T.V. NO ACUTE DISTRESS NOTED. PT IS LESS LABILE THE DAY PROGRESSED. MED COMPLIANT. NO AGGRESSIVE BEHAVIORS NOTED THIS SHIFT. CONFUSION NOTED. WILL REDIRECT AND REORIENT NEEDED. WILL CONT PLAN OF CARE.
--- NOTE | 2019-05-25 19:48 | NUR ---
PATIENT IS CONFUSED, LABILE, HAS TO BE REDIRECTED FREQUENTLY, HE'S FORGETFUL, CAN MAKE NEEDS KNOWN, POOR INSIGHT TO SITUATION. COMPLIANT WITH MEDS. WILL FOLLOW POC
[2019-05-26 04:30] VITALS: BP 132/72
--- NOTE | 2019-05-26 08:22 | NUR ---
B) The patient is awake, but he has poor insight. He knows his name, not where he is or why he is here. He has no recall of ever being here before. He has not shown aggression this am. I) Provide prescribed meds. R) The patient is compliant with meds. P) Continue POC.
[2019-05-26 08:43] VITALS: BP 133/77
--- NOTE | 2019-05-26 09:54 | NUR ---
The patient is sitting in the day room, he is sad, just staring blankly and he says he is not fine. He doesn't understand what is going on around him.
--- NOTE | 2019-05-26 15:51 | PN ---
PATIENT:GENA MORALES MEDICAL RECORD: [id number] LOCATION:[facility] ADMISSION DATE: 05/24/19 PROGRESS NOTE DATE OF SERVICE: 05/25/2019 SUBJECTIVE: The patient's case was discussed with staff. He has no new complaint. OBJECTIVE: The patient denies intent to harm himself or others. He is clearly confused and impaired, but in good behavioral control today. ASSESSMENT: No change in diagnoses. PLAN: The patient was very agitated last night. He was delusional, aggressive, shaking doors, and was clearly having sundowning behavior. He is not having those behaviors today. During the team meeting, I learned from a conversation with the patient's that the assisted living center just gives him his medicines, but does not observe him take them and they do not administer them, which I suppose is consistent with their licensure. I would strongly suspect that, after discharge, he either did not take his medicines or did take them consistently, especially since the , who is searching for a possible explanation, says that she thinks the medicines may be causing the behavior, which is not the case. At any rate, I am going to just continue the Aricept and the Celexa today. I am not going to start him on anything else and we will see if there is aggressive behavior this afternoon. TRANSINT:[id number] Voice Confirmation ID: [id number] DOCUMENT ID: [id number] CRISELDA DIAMOND MD at 1551 CC: [id number] DICTATION DATE: 05/25/19 1441 INDUSTRIAL GAS FITTER: 05/25/19 1503 ADM IN [place] [id number] [place] [address]
[2019-05-26 22:27] VITALS: BP 128/65
--- NOTE | 2019-05-27 01:51 | NUR ---
B) Patient is alert and oriented to person and being in a hospital, very confused, wanders at times, I) Administered scheduled medications, monitored for safety, redirected as needed, R) Medication compliant, patient did try to pocket some of his medications, P) Continue plan of care.
[2019-05-27 09:00] VITALS: BP 145/78
[2019-05-27 10:30] VITALS: BP 145/78
--- NOTE | 2019-05-27 10:34 | NUR ---
RECEIVED PATIENT IN DINING ROOM FOR B'FAST, ALERT, CALM. MEDS ADMIN PER ORDERS WITH COMPLETE MED COMPLIANCE NOTED. COOPERATIVE WITH STAFF REQUESTS AND GROUOP ACTIVITY. CONT POC INCLUDING MEDS AND GROUP THERAPY.
--- NOTE | 2019-05-27 11:56 | PN ---
PATIENT:GENA MORALES MEDICAL RECORD: [id number] LOCATION:[facility] ADMISSION DATE: 05/24/19 PROGRESS NOTE DATE OF SERVICE: 05/26/2019 SUBJECTIVE: The patient's case was discussed with staff. He has no new complaint. OBJECTIVE: The patient is in poor behavioral control. He has been agitated, disruptive and difficult to redirect. He has not required p.r.n. medication, but he has come as close to needing it or getting it as one could and I suspect many other nurses would have given him one based on the behavior that I witnessed today. It is much to be appreciated the skill with which he was redirected and diffused. ASSESSMENT: No change in diagnoses. PLAN: The patient is going to be started on Geodon on a scheduled basis. He will be monitored for clinical changes associated with its use. I am going to start him at 20 mg at bedtime. TRANSINT:[id number] Voice Confirmation ID: [id number] DOCUMENT ID: [id number] CRISELDA DIAMOND MD at 1156 CC: [id number] DICTATION DATE: 05/26/19 1709 TOBACCO CURER: 05/26/192045 ADM IN [place] [address] [place] [address]
[2019-05-27 20:10] VITALS: BP 135/80
--- NOTE | 2019-05-27 23:20 | NUR ---
B.) Patient is alert but disoriented to situation and appears anxious and aggitated. I.) Provided PRN for anxiety. Provided PM Medications. R.) Compliant with medications. Noted improvement in anxiety following injection. P.) Continue Plan of Care
--- NOTE | 2019-05-28 02:57 | NUR ---
PATIENT GIVEN ATIVAN 0.5 MG IM AND HALDOL 2 MG IM FOR ANXIETY AT 18:45.
[2019-05-28 07:00] VITALS: BP 122/71
--- NOTE | 2019-05-28 10:42 | NUR ---
PATIENT DROWSY FOR B'FAST, ABLE TO FEED SELF. COMPLIANT WITH MEDS. ASSISTED TO DAYROOM IN W/C. JANNETH ALARM IN USE. CONT POC.
--- NOTE | 2019-05-28 11:41 | PN ---
PATIENT:GENA MORALES MEDICAL RECORD: [id number] LOCATION:[facility] ADMISSION DATE: 05/24/19 PROGRESS NOTE DATE OF SERVICE: 05/27/2019 SUBJECTIVE: The patient's case was discussed with staff. He has no new complaint. OBJECTIVE: The patient is in good behavioral control with limited insight about his condition. He generally tolerates his medicines well. ASSESSMENT: No change in diagnoses. PLAN: Current medicines will be maintained along with therapies. His long-term prognosis is guarded. TRANSINT:[id number] Voice Confirmation ID: [id number] DOCUMENT ID: [id number] CRISELDA DIAMOND MD at 1141 CC: [id number] DICTATION DATE: 05/27/19 1227 MOTOR VEHICLE REPRESENTATIVE: 05/27/19 1300 ADM IN [place] [id number] [place] [address]
[2019-05-28 21:15] VITALS: BP 151/75
--- NOTE | 2019-05-28 22:26 | NUR ---
RECEIVED IN DAYROOM. SITTING IN A CHAIR WITH PEERS BY HER SIDE. CALM AND COOPERATIVE WITH CARE AND ASSESSMENT. NO SIGNS OF AGGRESSION. REDIRECT AND REORIENT NEEDED. RESTING IN BED WITH EYES CLOSED AT THIS TIME. CONTINUE PLAN OF CARE
[2019-05-29 07:00] VITALS: BP 120/75
--- NOTE | 2019-05-29 07:30 | NUR ---
REC'D PT IN HALLWAY SOCIALIZING WITH PEERS. CALM AND COOPERATIVE WITH ASSESSMENT. MED COMPLIANT. NO AGGRESSION NOTED. REDIRECT AND REORIENT NEEDED. FALL PRECAUTIONS IN PACE. WILL CPOC.
--- NOTE | 2019-05-29 15:34 | PN ---
PATIENT:GENA MORALES MEDICAL RECORD: [id number] LOCATION:[facility] Cohen[facility]ett[facility] ADMISSION DATE: 05/24/19 PROGRESS NOTE DATE OF SERVICE: 05/28/2019 SUBJECTIVE: The patient's case was discussed with staff. He has no new complaint. OBJECTIVE: The patient is in good behavioral control with limited insight about his condition. He is tolerating his medicines well. ASSESSMENT: No change in diagnoses. PLAN: The patient did require p.r.n. medication yesterday because of agitation. He is calmer today. I am reluctant to increase his scheduled medicine significantly and feel that what he is currently taking has not had an opportunity to become effective. TRANSINT:[id number] Voice Confirmation ID: [id number] DOCUMENT ID: [id number] CRISELDA DIAMOND MD at 1534 CC: [id number] DICTATION DATE: 05/28/19 1153 COUNTY RECORDS MANAGEMENT OFFICER: 05/28/19 1507 ADM IN [place] [id number] [place] [address]
--- NOTE | 2019-05-29 21:12 | NUR ---
RECEIVED IN HALLWAY OUTSIDE OF NURSES STATION. CALM AND COOPERATIVE WITH CARE AND ASSESSMENT. NO SIGNS OF AGGRESSION. REDIRECT AND REORIENT NEEDED. RESTING IN BED WITH EYES CLOSED AT THIS TIME. CONTINUE PLAN OF CARE
[2019-05-29 22:28] VITALS: BP 122/67
[2019-05-30 08:19] VITALS: BP 119/65
--- NOTE | 2019-05-30 14:50 | PN ---
PATIENT:GENA MORALES MEDICAL RECORD: [id number] LOCATION:[facility] ePreira ADMISSION DATE: 05/24/19 PROGRESS NOTE DATE OF SERVICE: 05/29/2019 SUBJECTIVE: The patient's case was discussed with staff. He has no new complaint. OBJECTIVE: The patient is in good behavioral control with limited insight about his condition. He tolerates his medicines well. ASSESSMENT: No change in diagnoses. PLAN: Current medicines have been reviewed and will be maintained. Long-term prognosis guarded. TRANSINT:[id number] Voice Confirmation ID: [id number] DOCUMENT ID: [id number] CRISELDA DIAMOND MD at 1450 CC: [id number] DICTATION DATE: 05/29/19 1551 CRACKING STILL OPERATOR: 05/29/19 1557 ADM IN [place] [address] [place] [address]
--- NOTE | 2019-05-30 16:48 | NUR ---
B) PATIENT IS AWAKE AND ALERT, WITH SOME CONFUSION NOTED. CALM AND COOPERATIVE WITH CARE AND ASSESSMENT. I) ADMINISTERED PRESCRIBED MEDICATIONS ORDERED. MONITOR FOR SAFETY. R) COMPLIANT WITH MEDICATIONS. REDIRECT AND REORIENT NEEDED. P) CONTINUE PLAN OF CARE.
--- NOTE | 2019-05-30 19:48 | NUR ---
RECEIVED IN DINING AREA. WALKING ABOUT. CALM AND COOPERATIVE WITH CARE AND ASSESSMENT. NO SIGNS OF AGGRESSION. REDIRECT AND REORIENT NEEDED. CONTINUES TO MOVE ABOUT DAY AREA. CONTINUE PLAN OF CARE
[2019-05-30 20:17] VITALS: BP 112/56
--- NOTE | 2019-05-30 21:13 | NUR ---
RECEIVED IN DAYROOM. RESTING IN A CHAIR WITH PEERS BY HIS SIDE. CALM AND COOPERATIVE WITH CARE AND ASSESSMENT. NO SIGNS OF AGGRESSION. REDIRECT AND REORIENT NEEDED. RESTING IN BED WITH EYES CLOSED AT THIS TIME. CONTINUE PLAN OF CARE
[2019-05-31 09:00] VITALS: BP 119/65; BP 127/69
--- NOTE | 2019-05-31 11:53 | NUR ---
PT IS AWAKE AND ALERT TO PERSON ONLY. CALM AND COOPERATIVE WITH ASSESSMENT. MED COMPLIANT. NO AGGRESSION NOTED AT THIS TIME. FALL PRECAUTIONS IN PLACE. REDIRECT AND REORIENT NEEDED. FALL PRECAUTIONS IN PLACE. WILL CPOC.
--- NOTE | 2019-05-31 16:41 | PN ---
PATIENT:GENA MORALES MEDICAL RECORD: [id number] LOCATION:[facility] Pereira ADMISSION DATE: 05/24/19 PROGRESS NOTE DATE OF SERVICE: 05/30/2019 SUBJECTIVE: The patient's case was discussed with staff. He has no new complaint. OBJECTIVE: The patient is in good behavioral control. He has not been aggressive. ASSESSMENT: No change in diagnoses. PLAN: The patient is little bit adamant about leaving today to go stay with his daughter, whom I think is in [place]. He is not very clear about it. I think he has just gotten himself worked up about something that is partially confused, perhaps partially dilutional, but he was redirectable. The patient's cognition is fairly severely impaired. He has limited insight about his situation. TRANSINT:[id number] Voice Confirmation ID: [id number] DOCUMENT ID: [id number] CRISELDA DIAMOND MD at 1641 CC: [id number] DICTATION DATE: 05/30/19 1500 LINE RUNNER: 05/30/19 1619 ADM IN [place] [id number] [place] [id number]
--- NOTE | 2019-05-31 22:47 | NUR ---
B.) Patient is alert and oriented to self, place and sitution. I.)Provided PM medications. R.) Compliant with all medications. P.) Continue Plan of Care.
[2019-06-01 10:47] VITALS: BP 141/59
--- NOTE | 2019-06-01 11:17 | NUR ---
PATIENT IS ALERT AND ORIENTED TO SELF ONLY. REDIRECT AND REORIENT NEEDED. AMBULATES. NO ACUTE DISTRESS NOTED. MEDICATION COMPLIANT. AT TIMES CRUSH MEDICATIONS TO PREVENT CHEEKING. INCONTIENT. WILL CONT PLAN OF CARE.
--- NOTE | 2019-06-01 12:30 | NUR ---
Team treatment review: Nutrition: Diet: Regular PO intake ~58% average of last 9 meals Wt: 156# -> down 7.4# from admit wt +BM Megace was started on 05/24/19 RDN will order Ensure with meals to increase kcal, protein intake. Will monitor wt closely. RDN following.
--- NOTE | 2019-06-01 15:43 | PN ---
PATIENT:GENA MORALES MEDICAL RECORD: [id number] LOCATION:[facility] Pereira ADMISSION DATE: 05/24/19 PROGRESS NOTE DATE OF SERVICE: 05/31/2019 SUBJECTIVE: The patient's case was discussed with staff. He has no new complaint. OBJECTIVE: The patient is in good behavioral control with limited insight about his condition. He is tolerating his medicines well. His previous problems with agitation have improved. I am going to maintain him on his current scheduled medicines and we will monitor him for clinical changes associated with them. He is eating better and I think that is because of the Megace. TRANSINT:[id number] Voice Confirmation ID: [id number] DOCUMENT ID: [id number] CRISELDA DIAMOND MD at 1543 CC: [id number] DICTATION DATE: 05/31/19 1649 COMMUNITY MANAGER: 05/31/19 1930 ADM IN [facility] [address] [place] [address]
[2019-06-01 20:08] VITALS: BP 109/57
--- NOTE | 2019-06-01 23:37 | NUR ---
B.) PATIENT IS ALERT AND ORIENTED TO SELF AND SITUATION. I.) PROVIDED PM MEDICATIONS BUT PATIENT ATTEMPTS TO CHEEK PILLS. R.) COMPLIANT WITH PM MEDICATIONS AFTER SITTING WITH PATIENT UNTIL THEY ARE SWALLOWED. P.) CONTINUE PLAN OF CARE
--- NOTE | 2019-06-02 09:16 | NUR ---
RECEIVED PT IN DINING ROOM FOR B'FAST, ALERT, CALM, COOPERATIVE, CONT CONFUSION. ATTACHES SELF TO FEMALE PATIENTS AT TIMES. MEDS ADMIN PER ORDERS WITH COMPLETE MED COMPLIANCE NOTED. COOPERATIVE WITH PLAN OF CARE. CONT POC INCLUDING MEDS AND GROUP THERAPY DIRECTED.
[2019-06-02 10:23] VITALS: BP 113/67
--- NOTE | 2019-06-02 11:59 | PN ---
PATIENT:GENA MORALES MEDICAL RECORD: [id number] LOCATION:PILAR Pereira ADMISSION DATE: 05/24/19 PROGRESS NOTE DATE OF SERVICE: 06/01/2019 SUBJECTIVE: The patient's case was discussed with staff. He has no new complaint. OBJECTIVE: The patient denies intent to harm himself or others. He generally tolerates his medicines well. ASSESSMENT: No change in diagnoses. PLAN: Brief supportive and educational interventions were made. Long-term prognosis is guarded. TRANSINT:[id number] Voice Confirmation ID: [id number] DOCUMENT ID: [id number] CRISELDA DIAMOND MD at 1159 CC: [id number] DICTATION DATE: 06/01/19 1545 SIGNAL CONSTRUCTOR: 06/01/19 191 ADM IN [facility] [address] [place] [address]
--- NOTE | 2019-06-02 20:02 | NUR ---
PATIENT IS CONFUSED BUT CAN BE REDIRECTED, COMPLIANT WITH MEDS, CAN MAKE NEEDS KNOWN, WILL FOLLOW POC
[2019-06-02 21:27] VITALS: BP 135/67
[2019-06-03 07:35] VITALS: BP 98/63
--- NOTE | 2019-06-03 07:59 | NUR ---
REC'D PT AWAITING BREAKFAST. COMPLIANT WITH ASSESSMENT, VITAL SIGNS. NO ACUTE DISTRESS NOTED. PT IS ORIENTED TO SELF. CONFUSION NOTED. AMBULATES. MED COMPLIANT. WILL CONT PLAN OF CARE.
--- NOTE | 2019-06-03 11:59 | PN ---
PATIENT:GENA MORALES MEDICAL RECORD: [id number] LOCATION:[facility] TrejoJericho ADMISSION DATE: 05/24/19 PROGRESS NOTE DATE OF SERVICE: 06/02/2019 SUBJECTIVE: The patient's case was discussed with staff. He has no new complaint. He is eating and sleeping well. OBJECTIVE: The patient has been noted to "cheek his pills," and as a result we are now crushing them. He denies that he is doing this when asked about it. I am not sure how to explain it. He certainly does not look suspicious or paranoid and given an opportunity to talk about any concerns about medicines he is not expressing any. He generally tolerates his medicines well. He has not been aggressive. He is, of course, very confused and exit seeking. ASSESSMENT: No change in diagnoses. PLAN: The patient will be maintained on current medicines and transferred to acute inpatient psychiatric care once medically stabilized. TRANSINT:[id number] Voice Confirmation ID: [id number] DOCUMENT ID: [id number] CRISELDA DIAMOND MD at 1159 CC: [id number] DICTATION DATE: 06/02/19 1204 ENGINEERING TECHNICAL WRITER: 06/02/[address] [facility] [address] [place] [id number]
--- NOTE | 2019-06-03 21:42 | NUR ---
PATIENT IS CONFUSED, LABILE, HE THINKS A PARTICULAR RESIDENT HERE IS HIS AND TENDS TO HER, HE HAS TO BE REDIRECTED SEVERAL TIMES, COMPLIANT WITH MEDS.
[2019-06-03 21:54] VITALS: BP 113/64
[2019-06-04 08:01] VITALS: BP 113/59
--- NOTE | 2019-06-04 12:20 | PN ---
PATIENT:GENA MORALES MEDICAL RECORD: [id number] LOCATION:PILAR Pereira ADMISSION DATE: 05/24/19 PROGRESS NOTE DATE OF SERVICE: 06/02/2019 SUBJECTIVE: The patient's case was discussed with staff. He has no new complaint. OBJECTIVE: The patient is in good behavioral control, but severely impaired cognitively. ASSESSMENT: No change in diagnoses. PLAN: Current medicines and therapies have been reviewed and will be maintained. Long-term prognosis is guarded. TRANSINT:[id number] Voice Confirmation ID: [id number] DOCUMENT ID: [id number] CRISELDA DIAMOND MD at 1220 CC: [id number] DICTATION DATE: 06/03/19 1222 VETERANS' COUNSELOR: 06/03/19 2312 ADM IN [place] [address] [place] [address]
--- NOTE | 2019-06-04 12:45 | NUR ---
PT IS ALERT TO PERSON ONLY. CALM AND COOPERATIVE WITH ASSESSMENT. MED COMPLIANT. NO AGGRESSION NOTED. FALL PRECAUTIONS IN PLACE. WILL CPOC.
[2019-06-04 20:47] VITALS: BP 107/68
--- NOTE | 2019-06-04 21:14 | NUR ---
RECEIVED IN DAYROOM. SITTING IN A CHAIR WITH A PEER BY HIS SIDE. CALM AND COOPERATIVE WITH CARE AND ASSESSMENT. NO SIGNS OF AGGRESSION. REDIRECT AND REORIENT NEEDED. CONTINUES TO SIT QUIETLY. CONTINUE PLAN OF CARE
[2019-06-05 07:00] VITALS: BP 144/87
--- NOTE | 2019-06-05 08:04 | NUR ---
PT IS VERY AGGRESSIVE WITH STAFF AND OTHER PTS. PT YELLING AND SREAMING " SHUT THE HELL UP." UNABLE TO REDIRECT PT AT THIS TIME. PRN ATIVAN 0.5 MG P.O GIVEN PER PRN ORDER. WILL CONTINUE TO MONITOR Q 15 MINUTES FOR SAFETY.
--- NOTE | 2019-06-05 09:10 | NUR ---
PRN MED EFFECTIVE AT THIS TIME. PT IS RESTING CALMLY. NO AGGRESSION NOTED AT THIS TIME. WILL CPOC.
--- NOTE | 2019-06-05 14:45 | PN ---
PATIENT:GENA MORALES MEDICAL RECORD: [id number] LOCATION:PILAR Pereira ADMISSION DATE: 05/24/19 PROGRESS NOTE DATE OF SERVICE: 06/04/2019 SUBJECTIVE: The patient's case was discussed with staff. He has no new complaint. OBJECTIVE: The patient is in good behavioral control with limited insight about his condition. He is not aggressive today. He is quite confused, but he slept well last night and ate marginally well yesterday. ASSESSMENT: No change in diagnoses. PLAN: Supportive and educational interventions were made. Long-term prognosis is guarded. TRANSINT:[id number] Voice Confirmation ID: [id number] DOCUMENT ID: [id number] CRISELDA DIAMOND MD at 1445 CC: [id number] DICTATION DATE: 06/04/19 1222 MEDICAL EQUIPMENT REPAIR TECHNICIAN: 06/04/19 1357 ADM IN [place] [id number] [place] [id number]
--- NOTE | 2019-06-05 20:58 | NUR ---
RECEIVED IN DAYROOM. SITTING IN A CHAIR WITH PEERS AT HIS SIDE. RAISING HIS VOICE TO ONE OF HIS PEERS. INCREASING ANXIETY. CALM AND COOPERATIVE WITH CARE AND ASSESSMENT. REDIRECT AND REORIENT NEEDED. MOVED PATIENT TO HIS ROOM. CONTINUE PLAN OF CARE
[2019-06-05 22:23] VITALS: BP 116/75
[2019-06-06 08:30] VITALS: BP 151/64
--- NOTE | 2019-06-06 10:00 | NUR ---
RECEIVED PATIENT IN DINING ROOM FOR B'FAST, ALERT, CALM, COOPERATIVE. MEDS ADMIN PER ORDERS WITH COMPLETE MED COMPLIANCE NOTED. MEDS ADMIN WHOLE WITHOUT DIFFICULTY. COOPERATIVE WITH GROUP AND STAFF REQUESTS. CONT POC INCLUDING MEDS AND GROUP THERAPY DIRECTED.
--- NOTE | 2019-06-06 11:14 | PN ---
PATIENT:GENA MORALES MEDICAL RECORD: [id number] LOCATION:PILAR Pereira ADMISSION DATE: 05/24/19 PROGRESS NOTE DATE OF SERVICE: 06/05/2019 SUBJECTIVE: The patient's case was discussed with staff. He has no new complaint. OBJECTIVE: The patient denies intent to harm himself or others. He generally tolerates his medicines well. ASSESSMENT: No change in diagnoses. PLAN: The patient is going to be started on a low dose of Klonopin. He easily becomes confused, and when he is confused, he becomes agitated; and when he is agitated, he becomes difficult to manage. He has actually had several days of good behavior; but over the weekend, there has been a new admission to the unit and the woman apparently looks a lot like his and he is convinced that this woman is his and he thinks that he is taking care of her and advocating for her. She does not know who he is and does not want him near her, so our staff tried to separate them and there is the problem. I think a low dose of Klonopin would help him be more redirectable, and if it is effective for a day or two, I will discharge him. TRANSINT:[id number] Voice Confirmation ID: [id number] DOCUMENT ID: [id number] CRISELDA DIAMOND MD at 1114 CC: [id number] DICTATION DATE: 06/05/19 1530 LINTER DRIER OPERATOR: 06/05/19 1706 ADM IN [place] [address] [place] [address]
--- NOTE | 2019-06-06 20:09 | NUR ---
RECEIVED IN DAYROOM. SITTING IN CHAIR WITH PEERS AT HIS SIDE. CALM AND COOPERATIVE WITH CARE AND ASSESSMENT. NO SIGNS OF AGGRESSION. REDIRECT AND REORIENT NEEDED. RESTING QUIETLY IN A CHAIR AT THIS TIME. CONTINUE PLAN OF CARE
[2019-06-06 20:23] VITALS: BP 118/63
--- NOTE | 2019-06-07 09:53 | NUR ---
RECEIVED PATIENT IN DAYROOM FOR B'FAST, CALM, QUIET, DROWSY, LISINOPRIL HELD DUE TO B/P 95/55. ALL OTHER MEDS ADMIN ORDERED. NO AGGRESSION NOTED. COOPERATIVE. CONT POC DIRECTED.
[2019-06-07 10:59] VITALS: BP 99/55
--- NOTE | 2019-06-07 15:32 | PN ---
PATIENT:GENA MORALES MEDICAL RECORD: [id number] LOCATION:PILAR CohenLizettJericoh ADMISSION DATE: 05/24/19 PROGRESS NOTE DATE OF SERVICE: 06/06/2019 SUBJECTIVE: The patient's case was discussed with staff. He has no new complaint. OBJECTIVE: The patient is in good behavioral control. He slept well and ate well yesterday. He does seem to be significantly calmer with the addition of the low dose of Klonopin to his medication regimen. Unless it causes excessive sedation, I plan to maintain it and we will monitor him for behavioral changes. I do anticipate he can be discharged soon. TRANSINT:[id number] Voice Confirmation ID: [id number] DOCUMENT ID: [id number] CRISELDA DIAMOND MD at 1532 CC: [id number] DICTATION DATE: 06/06/19 112 STRATEGIC ACCOUNT DIRECTOR: 06/06/19 1133 ADM IN [facility] [address] [place] [address]
--- NOTE | 2019-06-07 23:14 | NUR ---
PATIENT IS CONFUSED, HAS TO BE REDIRECTED OFTEN, HE CROSSES BOUNDARIES (PERSONAL SPACE). COMPLIANT WITH MEDS. PRN MED GIVEN EARLIER WITH GOOD RESULTS. WILL FOLLOW POC
--- NOTE | 2019-06-08 09:33 | NUR ---
Team Treatment Review: Diet: Regular PO intake: 84% per 9 meals Wt: 156 lbs (+1 lbs since 05/28) BM: 1 on 06/06 Meds: Sennosides, Geodon, Vit D, Flomax, Zocor, Megace Will provide supplements if PO <50% Monitor Closely Clinical Dietitian Following
[2019-06-08 10:44] VITALS: BP 171/85
--- NOTE | 2019-06-08 11:21 | PN ---
PATIENT:GENA MORALES MEDICAL RECORD: [id number] LOCATION:PILAR Trejo112 ADMISSION DATE: 05/24/19 PROGRESS NOTE DATE OF SERVICE: 06/07/2019 SUBJECTIVE: The patient's case was discussed with staff. He has no new complaint. OBJECTIVE: The patient has been a little agitated, but not in a major disruptive way. He appears quite edgy and unable to take much in the way of disruptive, loud noises on the unit. ASSESSMENT: No change in diagnoses. PLAN: I am considering increasing or changing some of his medicines to address the behaviors yesterday, but I am going to wait another day. There is an accumulation effect with the Klonopin and he is pretty ambulatory and I am reluctant to do anything that might affect his mobility. TRANSINT:[id number] Voice Confirmation ID: [id number] DOCUMENT ID: [id number] CRISELDA DIAMOND MD at 1121 CC: [id number] DICTATION DATE: 06/07/19 162 SUPERVISOR WATER TREATMENT PLANT: 06/07/192019 ADM IN [place] [address] [place] [address]
--- NOTE | 2019-06-08 13:15 | NUR ---
HAS BEEN SLEEPY TODAY.ORIENTED TO SELF AND HOSPITAL.COMPLIANT WITH STAFF AND MEDS.FELL FROM WHEELCHAIR.ABRASIONS TO BILATERAL KNEES AND RIGHT ELBOW PRESENT.NO LUMPS OR SWOLLEN AREAS TO HEAD SEEN.DENIES PAIN.ASSISTED TO RECLINER PER 3.CHAIR ALARM INTACT AND WORKING.BP129/75,P86,R16,SAT97% ON RA. WILL NOTIFY MD AND MONITOR FOR CHANGES.
--- NOTE | 2019-06-08 13:28 | NUR ---
[place] FOR AND NOTIFIED OF FALL AND PATIENT STATUS. ORDERS TO DO NEURO CHECKS RECEIVED.
--- NOTE | 2019-06-08 13:55 | NUR ---
THIS NURSE ATTEMPTED TO CONTACT PATIENT TO INFORM HER OF PATIENTS FALL THIS SHIFT. NO ANSWER WILL TRY AGAIN.
[2019-06-08 19:36] VITALS: BP 110/50
--- NOTE | 2019-06-09 04:56 | NUR ---
B) patient is alert and oriented to person and place, very confused I) Administered scheduled medications as ordered, monitored for safety, neuro checks because of fall on previous shift, R) Mediation compliant, sleeping quietly in his bed, P) Continue plan of care.
--- NOTE | 2019-06-09 07:45 | NUR ---
PATIENT SITTING IN CHAIR THIS AM. STAFF HAD DIFFICULTY GETTING PATIENT UP THIS A.M. C/O OF PAIN TO KNEES AND HIP AREA. PT IN CHAIR DUE TO WEAKNESS AND UNSTEADY GAIT. CHAIR ALARM IN PLACE AND WILL CONT PLAN OF CARE.
[2019-06-09 08:23] VITALS: BP 143/75
--- NOTE | 2019-06-09 10:25 | NUR ---
NURSE TOLD Maya COTTRELL APN WHEN STAFF ATTEMPTED TO GET PATIENT UP FOR BREAKFAST HE C/O OF PAIN TO KNEES AND PELVIS AREA. BILATERAL KNEE. PELVIS X-RAY ORDERED. AWAITING X-RAY. NURSE CLEANED AND DRESSED AT THIS TIME. WILL CONT PLAN OF CARE.
--- NOTE | 2019-06-09 15:14 | PN ---
PATIENT:GENA MORALES MEDICAL RECORD: [id number] LOCATION:PILAR Pereira ADMISSION DATE: 05/24/19 PROGRESS NOTE DATE OF SERVICE: 06/08/2019 SUBJECTIVE: The patient's case was discussed with staff. He has no new complaint. OBJECTIVE: The patient is in good behavioral control. He does have limited insight about his condition. He generally is tolerating his medicines well. Unfortunately, last night was very different case. He was quite agitated, disruptive and this went on for a long time before he finally received Haldol and Ativan as a p.r.n. medication to calm him. The patient's behaviors are episodic, they worsen for a couple of days and then get better for a couple of days. Overall, this makes it somewhat difficult to titrate medication to an appropriate level and it also makes him completely unmanageable in an assisted living setting. I think at this point, I am going to view the current medication regimen as a failure and we will change significantly the medications he is taking. I anticipate he is going to be here for probably another week if this goes well. ASSESSMENT: No change in diagnoses. PLAN: As above. The patient is going to undergo some major revisions of his current medication regimen secondary to a failure to bring his behaviors to a reasonable control. TRANSINT:[id number] Voice Confirmation ID: [id number] DOCUMENT ID: [id number] CRISELDA DIAMOND MD at 1514 CC: [id number] DICTATION DATE: 06/08/19 1229 SEMICONDUCTOR ENGINEER: 06/08/19 1237 ADM IN [place] [address] [place] [address]
--- NOTE | 2019-06-09 16:16 | NUR ---
SPOKE WITH PATIENT THIS SHIFT. CODEWORD GIVEN. WANTED TO KNOW HIS BEHAVIOR AND HOW HE WAS DOING. NURSE EXPLAINED AND NOTIFIED OF THE X-RAYS. SHE VERALIZIED AGREEEMENT DUE TO FALL ON 06/08/19.
--- NOTE | 2019-06-09 16:16 | NUR ---
THIS NURSE HELD PATIENTS ROUTINE ATIVAN. DUE TO DROWINESS. MD AWARE.
--- NOTE | 2019-06-09 18:11 | NUR ---
PATIENT IS VERY DROWSY THIS SHIFT. THIS NURSE HELD 0900, 1500 ATIVAN 0.5 MG. MD IS AWARE. PT IS MED COMPLIANT. ASSIST TO RESTROOM. PT COMPLIANT WITH MEALS, MEDS, AND REDIRECTION. X-RAYS BACK AND DOCTOR AWARE. WILL CONT PLAN OF CARE.
[2019-06-09 20:50] VITALS: BP 104/51
--- NOTE | 2019-06-10 03:26 | NUR ---
B) Patient is alert and oriented to person and place, social with peers and staff, I) Administered scheduled medication as ordered, monitored for safety R) Medication compliant, sleeping quietly in his bed P) Continue plan of care.
[2019-06-10 08:06] VITALS: BP 128/78
--- NOTE | 2019-06-10 11:16 | PN ---
PATIENT:GENA MORALES MEDICAL RECORD: [id number] LOCATION:PILAR TrejoJericho ADMISSION DATE: 05/24/19 PROGRESS NOTE DATE OF SERVICE: 06/09/2019 SUBJECTIVE: The patient's case was discussed with staff. He has no new complaint. OBJECTIVE: The patient is somewhat sedated today. It appears to be related to the p.r.n. he had over 24 hours ago. He denies that he would seek to harm himself or others. He has not been aggressive. I am going to keep him on current medications for the time being. ASSESSMENT: No change in diagnoses. PLAN: Supportive and educational interventions were made. TRANSINT:[id number] Voice Confirmation ID: [id number] DOCUMENT ID: [id number] CRISELDA DIAMOND MD at 1116 CC: [id number] DICTATION DATE: 06/09/19 1519 INSULATION SPRAYER: 06/09/19 1525 ADM IN [place] [address] [place] [address]
--- NOTE | 2019-06-10 13:57 | NUR ---
IS ORIENTED TO SELF AND HOSPITAL ONLY.HAS SLEPT MOST OF THE DAY,AWAKENING FOR MEDS AND MEALS.IS COMPLIANT WITH STAFF AND MEDS.NO BEHAVIORS OBSERVED TODAY.WILL CONTINUE WITH CURRENT PLAN OF CARE,MONITOR FOR CHANGES AND SAFETY.
[2019-06-10 20:40] VITALS: BP 130/71
--- NOTE | 2019-06-11 01:41 | NUR ---
B) Patient is sleepy , arrouses to name and shaking, calm and cooperative this shift, I) Administered scheduled medications as ordered, monitored for safety R) Medication compliant, sleeping soundly P) Continue plan of care.
[2019-06-11 07:00] VITALS: BP 134/70
--- NOTE | 2019-06-11 10:44 | NUR ---
PATIENT DROWSY, SEDATED, APPETITE POOR, COMPLIANT WITH MEDS, COOPERATIVE. CONT PLAN OF CARE. NO VERBAL AGGRESSION.
--- NOTE | 2019-06-11 13:34 | PN ---
PATIENT:GENA MORALES MEDICAL RECORD: [id number] LOCATION:[facility] ADMISSION DATE: 05/24/19 PROGRESS NOTE DATE OF SERVICE: 06/10/2019 SUBJECTIVE: The patient's case was discussed with staff. He has no new complaint. OBJECTIVE: The patient is in good behavioral control. He has limited insight about his condition. He tolerates his medicines well. ASSESSMENT: No change in diagnoses. PLAN: I am encouraged by the patient's improvement in his behaviors. Unfortunately, he still seems a little bit sedated. If he does not show improvement in this respect by tomorrow, I will reasonably conclude that it is not related to the p.r.n. injection he had but to something different and something associated with his scheduled medicines. TRANSINT:[id number] Voice Confirmation ID: [id number] DOCUMENT ID: [id number] CRISELDA DIAMOND MD at 1334 CC: [id number] DICTATION DATE: 06/10/19 1118 PATIENT SAFETY MANAGER: 06/10/19 1138 ADM IN [place] [address] [place] [address]
--- NOTE | 2019-06-11 21:28 | NUR ---
B.) PT IS GROGGY AND SITTING IN YVETTE-CHAIR. I.) PROVIDED PM MEDICATIONS PER MAR. REORIENT NEEDED R.) COMPLIANT WITH ALL MEDICATIONS. PT REMAINS GROGGY AND UNINTERESTED IN HIS SURROUNDINGS. P.) CONTINUE PLAN OF CARE
[2019-06-12 07:00] VITALS: BP 106/64
[2019-06-12 12:16] LABS: ALBUMIN 3.1 g/dL (3.4-5.0); ALKALINE PHOSPHATASE 82 U/L (46-116); ALT (SGPT) 47 U/L (10-68); BILIRUBIN - TOTAL 1.14 mg/dL (0.2-1.3); CALC OSMOLALITY 287 mosm/kg (275-300); CHLORIDE - SERUM 106 mmol/L (98-107); CREATININE - SERUM 0.9 mg/dL (0.6-1.3); GLUCOSE 104 mg/dL (74-106); POTASSIUM - SERUM 4.7 mmol/L (3.5-5.1); PROTEIN - SERUM 6.3 g/dL (6.4-8.2); SODIUM 142 mmol/L (136-145); UREA NITROGEN 27 mg/dL (7-18); eGFR NON AFRICAN AMERICAN 86 mL/min (90-120)
[2019-06-12 12:46] LABS: BASOPHILS 0.1 % (0-2); EOSINOPHILS 0.3 % (0-7); HEMATOCRIT 42.6 % (42.0-54.0); IMMATURE GRANULOCYTES 0.4 % (0-5); LYMPHOCYTES 14.5 % (15-50); MCH 31.6 pg (26.0-34.0); MCHC 35.2 g/dL (31.0-37.0); MCV 89.7 fL (80.0-100.0); MEAN PLATELET VOLUME 9.8 fL (7.4-10.4); MONOCYTES 15.2 % (2-11); NEUTROPHILS 69.5 % (40-80); PLATELET COUNT 161 10x3/uL (130-400); RBC 4.75 10x6/uL (4.20-6.10); RDW 13.7 % (11.5-14.5); WBC 7.4 10x3/uL (4.8-10.8)
--- NOTE | 2019-06-12 13:58 | NUR ---
PT IS AWAKE AND ALERT TO PERSON ONLY. CALM AND COOPERATIVE WITH ASSESSMENT. REDIRECT AND REORIENT NEEDED. NO AGGRESSION NOTED. MED COMPLIANT. FALL PRECAUTIONS IN PLACE. WILL CPOC.
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
--- NOTE | 2019-06-12 20:01 | NUR ---
MED COMPLIANT. RELATED NEEDED TO URINATE. PATIENT STOOD AND ATTEMPTED TO USE THE URINAL WITH NO SUCCESS.
[2019-06-12 20:27] VITALS: BP 130/81
[2019-06-13 07:00] VITALS: BP 137/67
--- NOTE | 2019-06-13 07:29 | NUR ---
PT SITTING IN CHAIR IN HALLWAY WITH PEERS. ALERT TO PERSON ONLY. NO AGGRESSION NOTED. PT IS ANXIOUS ABOUT GETTING COFFEE THIS MORNING. CALM AND COOPERATIVE WITH ASSESSMENT. MED COMPLIANT. REDIRECT AND REORIENT NEEDED. FALL PRECAUTIONS IN PLACE. WILL CPOC.
--- NOTE | 2019-06-13 14:05 | PN ---
PATIENT:GENA MORALES MEDICAL RECORD: [id number] LOCATION:[facility] ADMISSION DATE: 05/24/19 PROGRESS NOTE DATE OF SERVICE: 06/11/2019 SUBJECTIVE: The patient's case was discussed with staff. He has no new complaint. OBJECTIVE: The patient is in good behavioral control. He does appear to be slightly sedated. ASSESSMENT: No change in diagnoses. PLAN: The patient's scheduled Ativan will be discontinued. I will monitor him for clinical changes. TRANSINT:[id number] Voice Confirmation ID: [id number] DOCUMENT ID: [id number] CRISELDA DIAMOND MD at 1405 CC: [id number] DICTATION DATE: 06/11/19 1350 PLATE MILL HAND: 06/11/19 1741 ADM IN [place] [id number]
--- NOTE | 2019-06-13 14:05 | PN ---
PATIENT:GENA MORALES MEDICAL RECORD: [id number] LOCATION:[facility] ADMISSION DATE: 05/24/19 PROGRESS NOTE DATE OF SERVICE: 06/12/2019 SUBJECTIVE: The patient's case was discussed with staff. He has no new complaint. OBJECTIVE: The patient is more awake and alert today. He is tolerating his medicines reasonably well. ASSESSMENT: No change in diagnoses. PLAN: The patient will be maintained on current medicines. I am hopeful that this level of improvement continues, and if so, he can be discharged from the hospital soon. TRANSINT:[id number] Voice Confirmation ID: [id number] DOCUMENT ID: [id number] CRISELDA DIAMOND MD at 1405 CC: [id number] DICTATION DATE: 06/12/19 1413 CERTIFIED MEDICAL TRANSCRIPTIONIST: 06/12/19 1434 ADM IN [place] [address] [place] [address]
--- NOTE | 2019-06-13 14:18 | NUR ---
Nutrition Follow-up: Diet: Regular with Ensure with meals PO: ~53% x 5 days Meds: guido kumari linzess Labs reviewed Last BM 06/12 Wt: 156# (06/11/19) -8# from admit however wt trend stable x last [address] Following
[2019-06-13 18:52] VITALS: BP 104/71
--- NOTE | 2019-06-13 19:12 | NUR ---
RECEIVED IN DAYROOM. SITTING IN A WHEELCHAIR. ASSIT TO TRANSFERE TO BEDROOM AREA. CALM AND COOPERATIVE WITH CARE AND ASSESSMENT. NO SIGNS OF AGGRESSION. REDIRECT AND REORIENT NEEDED. RESTING QUIETLY OUTSIDE OF NURSES STATION AT THIS TIME. CONTINUE PLAN OF CARE
[2019-06-14 09:41] VITALS: BP 151/113
[2019-06-14 10:40] VITALS: BP 138/76
--- NOTE | 2019-06-14 15:09 | PN ---
PATIENT:GENA MORALES MEDICAL RECORD: [id number] LOCATION:[facility] ADMISSION DATE: 05/24/19 PROGRESS NOTE DATE OF SERVICE: 06/13/2019 SUBJECTIVE: The patient's case was discussed with staff. He has no new complaint. OBJECTIVE: The patient is in good behavioral control with limited insight about his condition. He continues to look somewhat sedated. ASSESSMENT: No change in diagnoses. PLAN: I am going to discontinue the patient's trazodone and Zyprexa. This is being done secondary to what I consider an unacceptable level of sedation. I am concerned that he is going to rebound and become agitated. It appears to be difficult to find a middle ground between these 2 extremes. TRANSINT:[id number] Voice Confirmation ID: [id number] DOCUMENT ID: [id number] CRISELDA DIAMOND MD at 1509 CC: [id number] DICTATION DATE: 06/13/19 1420 FISH ICER: 06/13/19 1611 ADM IN [place] [id number] [place] [id number]
[2019-06-14 19:39] VITALS: BP 160/96
--- NOTE | 2019-06-14 20:33 | NUR ---
B) Patient is alert and oriented to self, very confused, sleepy at times. I) Administered scheduled medications as ordered, monitored for safety R) Mediation compliant, sitting quietly in dayroom socializing with peers, P) Continue plan of care.
--- NOTE | 2019-06-15 09:08 | NUR ---
Team Treatment Review: Diet: Regular Diet, Ensure w/ Meals PO Intake: 67% per 9 meals Wt: 108.4 lbs on Jun 11 BM: X 2 on Jun 14 Sig Meds: Megace, Vit B6, Vit C, MVI Goals: Continue Regular diet w/ ensure as tolerated PO intake >/= 75% estimated energy expenditure Clinical Dietitian Following
--- NOTE | 2019-06-15 09:19 | NUR ---
Team Treatment Review: Diet: Regular, Ensure with meals PO intake: 67% x 9 meals Wt: 155 on Jun 11, No sig changes BM: X 2 on Jun 14 Sig Meds: Vit D, Megace Goals: Continue Regular Diet with Ensure as tolerated PO intake >/= 75% estimated energy expenditure Will continue to monitor wt, BM frequency, PO intake, labs, and meds Clinical Dietitian Following
--- NOTE | 2019-06-15 11:20 | NUR ---
RECEIVED PATIENT IN DINING ROOM AT BREAKFAST TIME, DROWSY, CONFUSED, COOPERATIVE, NO EXIT-SEEKING NOTED. MEDS ADMIN PER ORDERS WITH COMPLETE MED COMPLIANCE NOTED. CONT PLAN OF CARE ORDERED.
[2019-06-15 13:13] VITALS: BP 122/78
--- NOTE | 2019-06-15 15:14 | PN ---
PATIENT:GENA MORALES MEDICAL RECORD: [id number] LOCATION:[facility] ADMISSION DATE: 05/24/19 PROGRESS NOTE DATE OF SERVICE: 06/14/2019 SUBJECTIVE: The patient's case was discussed with staff. He has no new complaint. OBJECTIVE: The patient is in good behavioral control with limited insight about his condition. He does tolerate his medicines well. He has not been aggressive today. ASSESSMENT: No change in diagnoses. PLAN: Current medicines will be maintained. Brief supportive and educational interventions were made. Long-term prognosis is guarded. TRANSINT:[id number] Voice Confirmation ID: [id number] DOCUMENT ID: [id number] CRISELDA DIAMOND MD at 1514 CC: [id number] DICTATION DATE: 06/14/19 1526 STEAM HOIST OPERATOR: 06/14/19 1712 ADM IN [place] [id number] [place] [address]
--- NOTE | 2019-06-15 18:48 | NUR ---
THIS NURSE ASSISTED PATIENT TO THE RESTROOM. PT HAD A MEDIUM SEMI FORMED BOWEL MOVEMENT. PT C/O OF PAIN DURING BOWEL MOVEMENT. SMALL AMOUNT OF BLOOD NOTED. PT HAD A HEMMOROID IN ANAL AREA. NURSE APPLIED CREAM TO AREA. PT TOLERTED PERICARE. WILL PASS TO ONCOMING SHIFT.
[2019-06-16 05:19] VITALS: BP 128/75
[2019-06-16 07:53] VITALS: BP 121/63
--- NOTE | 2019-06-16 12:45 | NUR ---
PATIENT YELLING AT STAFF, DIFFICULT TO RE-DIRECT. QUITE CONFUSED.
--- NOTE | 2019-06-16 16:09 | NUR ---
PATIENT GIVEN PRN ATIVAN FOR AGITATION.
--- NOTE | 2019-06-16 16:29 | PN ---
PATIENT:GENA MORALES MEDICAL RECORD: [id number] LOCATION:[facility] ADMISSION DATE: 05/24/19 PROGRESS NOTE DATE OF SERVICE: 06/15/2019 SUBJECTIVE: The patient's case was discussed with staff. He has no new complaint. OBJECTIVE: The patient is calm and cooperative. He is severely impaired cognitively, but his behaviors have improved such that I anticipate he can be transitioned to the assisted living center soon. TRANSINT:[id number] Voice Confirmation ID: [id number] DOCUMENT ID: [id number] CRISELDA DIAMOND MD at 1629 CC: [id number] DICTATION DATE: 06/16/19 1452 VALUE ENGINEER: 06/16/19 1550 ADM IN [place] [id number] [place] [address]
[2019-06-16 21:00] VITALS: BP 133/68
--- NOTE | 2019-06-17 02:48 | NUR ---
PATIENT IS CONFUSED, HAS TO BE REDIRECTED OFTEN, COMPLIANT WITH MEDS. WILLL FOLLOW POC
--- NOTE | 2019-06-17 09:30 | PN ---
PATIENT:GENA MORALES MEDICAL RECORD: [id number] LOCATION:[facility] ADMISSION DATE: 05/24/19 PROGRESS NOTE DATE OF SERVICE: 06/16/2019 SUBJECTIVE: The patient's case was discussed with staff. He has no new complaint. OBJECTIVE: The patient is in good behavioral control with limited insight about his condition. He tolerates his medicines well. ASSESSMENT: No change in diagnoses. PLAN: The patient will be given a low dose of Klonopin to assist with some of his agitation. He will be monitored for clinical changes associated with its use. TRANSINT:[id number] Voice Confirmation ID: [id number] DOCUMENT ID: [id number] CRISELDA DIAMOND MD at 0930 CC: [id number] DICTATION DATE: 06/16/19 165 SUPERVISOR COMPRESSED YEAST: 06/16/199 ADM IN [place] [id number] [place] [id number]
[2019-06-17 13:07] VITALS: BP 124/71
--- NOTE | 2019-06-17 14:20 | NUR ---
PATIENT CALLED AND STATED COULD WE MAKE PATIENT LOOK PRESENTABLE AND NOT LIKE A HOBO? AND SHAVE HIM. NURSE STATED TO IF PATIENT ALLOW STAFF TO SHAVE HIM THAN YES WE CAN. AND IF HE ALLOW US TO CHANGE HIS CLOTHES THEN YES WE WOULD. WILL ATTMEPT TO FULFILL REQUEST FOR OUT OF TOWN COMPANY.
--- NOTE | 2019-06-17 19:06 | NUR ---
IS ORIENTED TO SELF ONLY.COMPLIANT WITH STAFF AND MEDS.AMBULATES WITH UNSTEADY GAIT.NO EXIT SEEKING OBSERVED.WILL CONTINUE WITH CURRENT PLAN OF CARE,MONITOR FOR CHANGES AND SAFETY.
--- NOTE | 2019-06-17 19:50 | NUR ---
REC'D PT SITTING IN THE DAYROOM AT THE TABLE WITH OTHER PATIENT'S. COOPERATIVE WITH VS. DISORIENTED X3. ORIENTED TO SELF ONLY. TRIES TO TELL PEERS WHAT TO DO OR NOT DO. NO INSIGHT TO WHY IS IN THE HOSPITAL. ADMINISTER MEDS PER ORDERS Q SHIFT. REORIENT Q SHIFT AND NEEDED. REDIRECT WHEN GIVES PEERS ORDERS. MED COMPLIANT. POOR REORIENTATION DUE TO DIFFICULTY WITH RETENTION. REDIRECTS WHEN TELLING OTHERS WHAT TO DO BUT THEN REPEATS SAME BEHAVIOR. CONTINUE POC AND PROVIDE SAFE ENVIRONMENT.
[2019-06-18 03:11] VITALS: BP 116/62
[2019-06-18 10:28] VITALS: BP 121/62
--- NOTE | 2019-06-18 10:49 | PN ---
PATIENT:GENA MORALES MEDICAL RECORD: [id number] LOCATION:[facility] ADMISSION DATE: 05/24/19 PROGRESS NOTE DATE OF SERVICE: 06/17/2019 SUBJECTIVE: The patient's case was discussed with staff. He has no new complaint. OBJECTIVE: The patient is in good behavioral control with limited insight about his condition. He tolerates his medicines well. ASSESSMENT: No change in diagnoses. PLAN: Current medicines have been reviewed and will be maintained. Long-term prognosis is guarded. TRANSINT:[id number] Voice Confirmation ID: [id number] DOCUMENT ID: [id number] CRISELDA DIAMOND MD at 1049 CC: [id number] DICTATION DATE: 06/17/19 1128 COTTRELL BLOWER: 06/17/19 1356 ADM IN [place] [address] [place] [address]
--- NOTE | 2019-06-18 14:44 | NUR ---
PATIENT SITTING IN RELCINER CHAIR WITH A BLANKET. RESP EVEN AND NONLABORED. NO ACUTE DISTRESS NOTED. ORIENTED TO PERSON WITH CONFUSION NOTED. PT IS EASY TO REDIRECT AT TIMES. THIS SHIFT EASY REDIRECTION. PT IS COMPLIANT WITH MEDS, ASSESSMENTS, ADL'S AND VITAL SIGNS. NO BEHAVIORS NOTED THIS SHIFT. WILL CONT PLAN OF CARE.
[2019-06-18 20:00] VITALS: BP 129/70
--- NOTE | 2019-06-18 22:42 | NUR ---
RECEIVED IN DAYROOM. SITTING IN A RECLINING CHAIR WITH PEERS AT HER SIDE. CONFUSED. CALM AND COOPERATIVE WITH CARE AND ASSESSMENT. REDIRECT AND REORIENT NEEDED. RESTING IN BED WITH EYES CLOSED. CONTINUE PLAN OF CARE
[2019-06-19 07:00] VITALS: BP 110/69
--- NOTE | 2019-06-19 11:03 | NUR ---
AWAKE AND ALERT, WITH CONFUSION NOTED. CALM AND COOPERATIVE WITH CARE AND ASSESSMENT. NEEDS REDIRECTING FREQUENTLY. MEDICATION COMPLIANT. HE CAN AMBULATE, BUT IS INCONTINENT AND NEEDS ASSISTANCE WITH ADL,S. WILL CONTINUE PLAN OF CARE.
--- NOTE | 2019-06-19 11:06 | NUR ---
Nutrition follow-up: Diet: Regular + Ensure with meals PO intake: ~63% avg. x last 9 meals or 3 days Wt: 156# (06/11/19)- stable x last 3 weeks Last BM 06/15/19 Significant meds: megace and senna No new labs Skin WNL RD following
--- NOTE | 2019-06-19 13:20 | NUR ---
NORRIS SPOKE WITH PT'S , SALLY, TO DISCUSS DISCHARGE PLANNING NEEDS. PT WILL DISCHARGE BACK TO [facility]. NORRIS STATED SHE WILL STAFF PT'S CASE TODAY AND LET HER KNOW PROJECTED DISCHARGE DATE.
--- NOTE | 2019-06-19 16:47 | PN ---
PATIENT:GENA MORALES MEDICAL RECORD: [id number] LOCATION:[facility] ADMISSION DATE: 05/24/19 PROGRESS NOTE DATE OF SERVICE: 06/18/2019 SUBJECTIVE: The patient's case was discussed with staff. He has no new complaint. OBJECTIVE: The patient is in good behavioral control with limited insight about his condition. He does tolerate his medicines well. ASSESSMENT: No change in diagnoses. PLAN: Brief supportive and educational interventions were made. Long-term prognosis is guarded. I anticipate he can be transitioned out of the hospital soon. TRANSINT:[id number] Voice Confirmation ID: [id number] DOCUMENT ID: [id number] CRISELDA DIAMOND MD at 1647 CC: [id number] DICTATION DATE: 06/18/19 1159 SPRAY PAINTER HELPER: 06/18/19 1516 ADM IN [place] [id number] [place] [address]
[2019-06-19] MEDS ORDERED: DONEPEZIL HCL10 MG PO (17:00)
[2019-06-19] MEDS ORDERED: KLONOPIN0.5 MG PO (17:01)
[2019-06-19] MEDS ORDERED: Senokot TAB PO (17:01)
[2019-06-19] MEDS ORDERED: LINZESS145 MCG PO (17:01)
[2019-06-19] MEDS ORDERED: Nizoral 2 % Cream TOPICAL (17:01)
[2019-06-19 20:03] VITALS: BP 95/65
[2019-06-20 07:00] VITALS: BP 128/77
--- NOTE | 2019-06-20 10:00 | NUR ---
PATIENT IS AWAKE AND ALERT, WITH CONFUSION NOTED. CALM AND COOPERATIVE WITH CARE AND ASSESSMENT. NEEDS FREQUENT REDIRECTION AND REORIENTING. FALL PRECAUTIONS IN PLACE. WILL CONTINUE PLAN OF CARE.
--- NOTE | 2019-06-20 11:26 | NUR ---
SW LEFT VM ON 'S PHONE TO STATE PT WAS BEING EVALUATED BY JOHNNIE AND DISCHARGED TODAY.
--- NOTE | 2019-06-20 11:40 | NUR ---
LEFT HOSPTIAL WITH BELONGINGS TO [facility]. NO BEHAVIORS AT THIS TIME.
--- NOTE | 2019-06-20 14:57 | PN ---
PATIENT:GENA MORALES MEDICAL RECORD: [id number] LOCATION:[facility] ADMISSION DATE: 05/24/19 PROGRESS NOTE DATE OF SERVICE: 06/19/2019 SUBJECTIVE: The patient's case was discussed with staff. He has no new complaint. OBJECTIVE: The patient is clearly impaired cognitively. He is, however, pleasant and conversant. He has been so for several days now. ASSESSMENT: No change in diagnoses. PLAN: In my opinion, the patient has improved sufficiently such that he can be discharged from the hospital. He will be transitioned back to the [facility] [place] tomorrow. His long-term prognosis is guarded. Both supportive and educational interventions were made. He will be followed on an outpatient basis by his primary care physician. TRANSINT:[id number] Voice Confirmation ID: [id number] DOCUMENT ID: [id number] CRISELDA DIAMOND MD at 1457 CC: [id number] DICTATION DATE: 06/19/19 170 OUTSIDE MACHINIST APPRENTICE: 06/19/19 1915 ADM IN [facility] [address] [place] [address]
--- NOTE | 2019-06-21 14:55 | DS ---
PATIENT:GENA MORALES :38 MEDICAL RECORD: [id number] DISCHARGE SUMMARY ADMISSION DATE: 05/24/19 DISCHARGE DATE: 06/20/19 IDENTIFYING DATA: The patient is 79 years old and known to me from previous hospitalization. He is in an assisted living center and has been aggressive there. He has an advanced dementia. He has almost no insight about his loss of memory and he is easily agitated and will become combative. HOSPITAL COURSE: The patient was admitted to the hospital and fully evaluated from both a medical, psychological, and social standpoint. He was treated with both, mood stabilizing and memory enhancing medications with some difficulty. He was having medication side effects, sedation or he was continuing to have disruptive and aggressive behaviors. With some difficulty, a reasonable compromise of the side effects versus efficacy was arrived. He was discharged from the hospital on 06/20/2019. DISCHARGE DIAGNOSES: AXIS I: Major neurocognitive disorder of the Alzheimer's type with behavioral disturbances. AXIS II: None. AXIS III: Hypercholesterolemia, hypertension, benign prostatic hypertrophy. AXIS IV: Moderate. AXIS V: Global assessment of functioning is 35. PLAN: At the time of discharge, the patient was not sedated. He was ambulatory and was partially oriented. He had no evidence of direct or acute dangerousness to himself or others and no psychotic symptoms. He was tolerating his medications well. He will be followed on an outpatient basis by his primary care physician and unfortunately his long-term prognosis is not very favorable. This is a degenerative condition and apparently he has declined a great deal just in the past 6 months. TRANSINT:[id number] Voice Confirmation ID: [id number] DOCUMENT ID: [id number] CRISELDA DIAMOND MD at 1455 CC: [id number] DICTATION DATE: 06/20/19 1505 WEB DEVELOPMENT DIRECTOR: 06/21/19 0017 DIS IN 06/20/19 [facility] [address] [place] [address]
== END 2019-06-20 11:40 | disposition home or self-care (01) | DRG 57 ==
LOC: D.PSYCH 11:51
PROVIDERS: Family Medicine; ADMIT Psychiatry & Neurology Psychiatry; ATTEND Psychiatry & Neurology Psychiatry
DX: G30.9 Alzheimer's disease, unspecified (principal); F02.81 Dementia in other diseases classified elsewhere, unspecified severity, with behavioral disturbance; E78.00 Pure hypercholesterolemia, unspecified; I10 Essential (primary) hypertension; N40.0 Benign prostatic hyperplasia without lower urinary tract symptoms; L21.9 Seborrheic dermatitis, unspecified; K64.9 Unspecified hemorrhoids; F32.9 Major depressive disorder, single episode, unspecified; K59.00 Constipation, unspecified; R53.83 Other fatigue; W19.XXXA Unspecified fall, initial encounter; E55.9 Vitamin D deficiency, unspecified